=== PATIENT | female | born 1960 ===

== ENCOUNTER 2018-10-13 07:39 | Outpatient (CLI) | payer MEDICARE, MEDICAID | END 2018-10-13 07:40 | disposition home or self-care (01) | LOC: C.VASC 07:39 | DX: I87.2 Venous insufficiency (chronic) (peripheral) (principal) ==

== ENCOUNTER → 2018-10-16 | Day surgery (SDC) | payer MEDICARE, MEDICAID ==
[2018-10-13 09:07] VITALS: BMI 28.1
[~2018-10-16] MED LIST: Bupivacaine 0.25% 20 ML INJ IJ ONE; HYDROmorphone 0.5 mg/0.5 ml ISec IVP PRN; Lidocaine Hydrochloride 10 ML INJ ONE; Midazolam 2 MG/2 ML VIAL ONE; Oxycodone/Acetaminophen 5/325 mg Tab PO PRN; Propofol 10 mg/ml Inj (20 ML) ONE; ceFAZolin 1 gm in NS 1 GM/100 ML BAG IVPB ONE
[2018-10-16 15:57] VITALS: RESP 16; TEMP 97.9
[2018-10-16 16:15] VITALS: BP 123/76; PULSE 73; O2SAT 97
--- NOTE | 2018-10-19 07:11 | OP ---
PROCEDURE DATE: 10/16/2018 PREOPERATIVE DIAGNOSIS: Hemangioma and soft tissue mass of the left thigh and leg. POSTOPERATIVE DIAGNOSIS: Hemangioma and soft tissue mass of the left thigh and leg. PROCEDURE PERFORMED: Wide and deep excision of 5 cm hemangioma and soft tissue mass of the left thigh and of the left leg. SURGEON: Willis Nevarez MD ANESTHESIA: Local sedation. BLOOD LOSS: 30 mL. POSTOPERATIVE CONDITION: Stable. INDICATIONS FOR SURGERY: A 58-year-old female with varicose veins and painful vascular tumors (hemangioma) of the leg, associated with indurated masses, and she will undergo wide and deep excision of both of these. DESCRIPTION OF PROCEDURE: The patient was taken to the operating room. IV sedation was administered. She was placed in the left lateral decubitus position with the left leg flexed, and left thigh and leg were prepped and draped. Attention was first turned to the left thigh, where local anesthesia was infiltrated of 1% lidocaine and 0.25% Marcaine, and a generous elliptical incision was made surrounding the mass. It was dissected into the fascial layer and completely removed. Bleeding was controlled using a Bovie. A larger blood vessel was repaired with Prolene. Full-thickness tissue flaps were raised. Counter incisions were made and advancement flap closures were performed using multiple layers of Monocryl, subcuticular Monocryl and glue. The above was repeated on the similar mass of the left leg. The patient tolerated the procedure well, was returned to the recovery room in stable condition. Willis Nevarez MD
== END | disposition home or self-care (01) ==
LOC: C.SDS 10:48
PROVIDERS: ATTEND Surgery
DX: I83.10 Varicose veins of unspecified lower extremity with inflammation (principal); D18.01 Hemangioma of skin and subcutaneous tissue
CPT/HCPCS: 14020; 82948; 88307; J0690; J2250; J2704; J3010

== ENCOUNTER 2018-11-20 09:57 | Emergency (ER) | payer MEDICARE, MEDICAID ==
[2018-11-20 10:17] VITALS: BMI 28.9
[2018-11-20 10:21] VITALS: O2SAT 98
[2018-11-20 11:49] LABS: BASO # 0.1 K/uL (0.0-0.2); BASO % 0.8 % (0.0-2.0); EOS # 0.2 K/uL (0.0-0.7); EOS % 2.2 % (0.0-4.0); HEMOGLOBIN 11.2 g/dL (11.0-16.0); LYMPH % 24.2 % (20.0-40.0); MEAN CELL VOLUME 87.4 fL (81.0-99.0); MEAN CORPUSCULAR HEMOGLOBIN 28.4 pg (27.0-31.0); MEAN CORPUSCULAR HGB CONC 32.5 g/dL (33.0-37.0); MEAN PLATELET VOLUME 7.7 fL (7.2-11.7); MONO # 0.6 K/uL (0.0-0.8); MONO % 7.2 % (0.0-10.0); NEUT # 5.3 K/uL (1.8-7.0); NEUT % 65.6 % (50.0-75.0); RBC 3.95 Mil/uL (3.80-5.20); RED CELL DISTRIBUTION WIDTH 14.5 % (11.5-14.5); WHITE BLOOD COUNT 8.1 K/uL (4.8-10.8)
[2018-11-20 11:58] LABS: SQUAMOUS EPITHIAL 3 /hpf (0-5); URINE BILIRUBIN NEGATIVE (NEGATIVE); URINE BLOOD NEGATIVE (NEGATIVE); URINE CLARITY Clear (Clear); URINE COLOR Yellow (YELLOW); URINE GLUCOSE (UA) 3+ mg/dL (Normal); URINE LEUKOCYTE ESTERASE NEG Leu/uL (Negative); URINE PROTEIN NEGATIVE (NEGATIVE); URINE UROBILINOGEN NORMAL mg/dL (0.2-1.0)
[2018-11-20 12:05] LABS: ALB/GLOB RATIO 1.4 (1.0-2.1); ALBUMIN 4.2 g/dL (3.5-5.0); ALT/SGPT 33 U/L (9-52); AST/SGOT 26 U/L (14-36); BLOOD UREA NITROGEN 13 mg/dL (7-17); CALCIUM 9.6 mg/dl (8.6-10.4); GFR NON-AFRICAN AMERICAN > 60
--- NOTE | 2018-11-20 12:07 | C.PDOC ---
History Of Present Illness 58 y/o female w/PMhx of NIDDM, comes for evaluation of persistent left leg pain and wound. Patient is s/p left leg hemangioma removal and varicose vein procedure on 10/16/[address] Bermudez. Pt reports , developed spot-surgical open wound in the area with oozing, redness and increasing pain now and is concerned for possible infection worsening over the past 4-5 days, (+) low grade fever. Otherwise pt denies high fever, lethargy, CP, SOB, chest pain, cough, nausea, vomiting, denies weakness, sensory or vascular deficits to left leg. Ambulatory, not in any apparent distress. Time Seen by Provider: 11/20/18 10:15 Chief Complaint (Nursing): Lower Extremity Problem/Injury History Per: Patient History/Exam Limitations: no limitations Onset/Duration Of Symptoms: Days (5) Current Symptoms Are (Timing): Still Present Severity: Moderate Past Medical History Reviewed: Historical Data, Nursing Documentation, Vital Signs Vital Signs: Last Vital Signs Temp 98.6 F 11/20/18 10:14 Pulse 72 11/20/18 10:14 Resp 17 11/20/18 10:14 BP 124/74 11/20/18 10:14 Pulse Ox 98 11/20/18 10:14 - Medical History PMH: Anxiety, Depression, Diabetes, HTN, Hypercholesterolemia, Rheumatoid Arthritis Denies: Chronic Kidney Disease Surgical History: Coronary Stent (x2), Endoscopy - [facility] Procedures CERVICAL BIOPSY NEC (09/14/99) COLONOSCOPY (10/05/14) D & C NEC (04/29/03) INJECT/INFUSE ELECTROLYT (11/17/12) INJECT/INFUSE NEC (11/17/12) LEVATOR MUSC SUSPENSION (03/01/05) OTH VAGINAL HYSTERECTOMY (03/01/05) Family History: States: Unknown Family Hx - Social History Hx Tobacco Use: No Hx Alcohol Use: No (denied) Hx Substance Use: No - Immunization History Hx Tetanus Toxoid Vaccination: No Hx Influenza Vaccination: Yes (05/2018) Hx Pneumococcal Vaccination: Yes (05/2018) Review Of Systems Except As Marked, All Systems Reviewed And Found Negative. Constitutional: Positive for: Fever, Chills Eyes: Negative for: Vision Change Cardiovascular: Negative for: Chest Pain Respiratory: Negative for: Shortness of Breath Gastrointestinal: Negative for: Nausea, Vomiting, Diarrhea Musculoskeletal: Positive for: Leg Pain Skin: Positive for: Lesions (open wound to left leg, +drainage) Neurological: Negative for: Weakness, Numbness, Dizziness Physical Exam - Physical Exam Appears: Well, Non-toxic, No Acute Distress Skin: Warm, Dry Head: Normacephalic Eye(s): bilateral: PERRL Oral Mucosa: Moist Neck: Supple Cardiovascular: Rhythm Regular, No Murmur Respiratory: No Accessory Muscle Use, No Rales, No Rhonchi, No Wheezing Gastrointestinal/Abdominal: Soft, No Tenderness, No Distention, No Guarding Extremity: Normal ROM (x 4), No Calf Tenderness, Capillary Refill (less than 2sec to LLE), No Deformity, Other (Open wound, 4x5 cm to the left inner thigh, covered by yellow eschar; Inner aspect of left knee w/ tender, erythematous ma ss over the incision line) Extremity: Bilateral: Atraumatic Pulses: Left Dorsalis Pedis: Normal, Right Dorsalis Pedis: Normal Neurological/Psych: Oriented x3, Normal Speech, Normal Motor, Normal Sensation, Normal Reflexes ED Course And Treatment - Laboratory Results Result Diagrams: 11/20/18 11:39 11/20/18 11:39 Lab Results: Urine Color Yellow (YELLOW) 11/20/18 11:39 Urine Clarity Clear (Clear) 11/20/18 11:39 Urine pH 5.0 (5.0-8.0) 11/20/18 11:39 Ur Specific [place] 1.025 (1.003-1.030) 11/20/18 11:39 Urine Protein Negative mg/dL (NEGATIVE) 11/20/18 11:39 Urine Glucose (UA) 3+ mg/dL (Normal) H 11/20/18 11:39 Urine Ketones Negative mg/dL (NEGATIVE) 11/20/18 11:39 Urine Blood Negative (NEGATIVE) 11/20/18 11:39 Urine Nitrate Negative (NEGATIVE) 11/20/18 11:39 Urine Bilirubin Negative (NEGATIVE) 11/20/18 11:39 Urine Urobilinogen Normal mg/dL (0.2-1.0) 11/20/18 11:39 Ur Leukocyte Esterase Neg Ariel/uL (Negative) 11/20/18 11:39 Urine WBC (Auto) 1 /hpf (0-5) 11/20/18 11:39 Urine RBC (Auto) 1 /hpf (0-3) 11/20/18 11:39 Ur Squamous Epith Cells 3 /hpf (0-5) 11/20/18 11:39 Lab Interpretation: No Acute Changes O2 Sat by Pulse Oximetry: 98 (RA) Pulse Ox Interpretation: Normal Progress Note: Pt remained tsable during the ED evaluation. Blood work review and appears without acute abnoramlities, no acute leukocytosis. Doppler US LLE (-) DVT. Pt received abx empirically, BCx- penidng. 11:[address] Bermudez and discharge with outpt f/u recommend at this time and scheduled on 11/23/18 at 12PM. results review with pt, understand, stable for discharge now. Disposition Counseled Patient/Family Regarding: Studies Performed, Diagnosis, Need For Followup, Rx Given - Disposition Referrals: Willis Bermudez MD [Staff Provider] - Disposition: HOME/ ROUTINE Disposition Time: 14:18 Condition: STABLE Additional Instructions: FOLLOW UP WITH DR. BERMUDEZ AT 12PM ON 11/23/18 FOR FURTHER EVALUATION RETURN TO ED IF ANY WORSENING OR NEW CHANGES Prescriptions: Sulfamethoxazole/Trimethoprim [Bactrim DS 800 mg-160 mg] 1 tab PO BID #14 tab Instructions: Cellulitis (Skin Infection), Adult (DC) Forms: [employer] (Amharic) Print Language: PORTUGUESE - Clinical Impression Clinical Impression: Postoperative cellulitis of surgical wound - PA / ASSOCIATE PRODUCER / Resident Statement MD/DO has reviewed & agrees with the documentation as recorded. - Scribe Statement The provider has reviewed the documentation as recorded by the [place] All medical record entries made by the Bee[place]i were at my direction and personally dictated by me. I have reviewed the chart and agree that the record accurately reflects my personal performance of the history, physical exam, medical decision making, and the department course for this patient. I have also personally directed, reviewed, and agree with the discharge instructions and disposition.
[2018-11-20] MEDS ORDERED: Piperacillin/Tazobact 3.375 GM in Sodium Chloride 100 ML IVPB STA (12:19)
[2018-11-20] MEDS ORDERED: Piperacillin/Tazobact 3.375 gm 100 ML IVPB ONE (12:29)
[2018-11-20] MEDS ORDERED: Vancomycin 1 GM 1 GM/250 ML BAG IVPB ONE (12:48)
[2018-11-20 14:38] VITALS: BP 131/78; PULSE 78; RESP 16; TEMP 98.1
--- NOTE | 2018-11-23 14:04 | VASCLAB ---
Date of service: 11/20/2018 PROCEDURE: Left Lower Extremity Venous Duplex Exam. HISTORY: Left calf pian, left knee mass PRIORS: None. TECHNIQUE: Left common femoral, femoral, popliteal and posterior tibial, peroneal and great saphenous veins were evaluated. Flow was assessed with color Doppler, compressibility, assessment of phasic flow and augmentation response. Report prepared by LINDSEY Matt, RVT FINDINGS: LEFT: 1. Common Femoral Vein: 1.1. Compressibility - Fully compressible: Thrombus - None : Flow - Phasic: Augmentation -Normal: Reflux - None. 2. Femoral Vein: 2.1. Compressibility - Fully compressible: Thrombus - None: Flow - Phasic: Augmentation -Normal: Reflux - None. 3. Popliteal Vein: 3.1. Compressibility - Fully compressible: Thrombus - None: Flow - Phasic: Augmentation -Normal: Reflux - None. 4. Posterior Tibial Vein: 4.1. Compressibility - Fully compressible: Thrombus - None: Flow - Phasic: Augmentation -Normal: Reflux - None. 5. Peroneal Vein: 5.1. Compressibility - Fully compressible: Thrombus - None: Flow - Phasic: Augmentation -Normal: Reflux - None. 6. Great Saphenous Vein: 6.1. Compressibility - Fully compressible: Thrombus - None: Flow - Phasic: Augmentation - Normal: Reflux - None. OTHER FINDINGS: IMPRESSION: No evidence of deep or superficial vein thrombosis of the left lower extremity with excellent venous flow. Normal valve function noted of the left side. Normal venous flow noted in the right common femoral vein.
== END 2018-11-20 14:36 | disposition home or self-care (01) ==
LOC: C.ER 09:57
DX: L03.116 Cellulitis of left lower limb (principal); I10 Essential (primary) hypertension; E11.9 Type 2 diabetes mellitus without complications; E78.00 Pure hypercholesterolemia, unspecified; Z95.5 Presence of coronary angioplasty implant and graft; Z87.891 Personal history of nicotine dependence
CPT/HCPCS: 80053; 81001; 85025; 87040; 87086; 93971; 96365; 96367; 99284; J2543; J7050

== ENCOUNTER 2018-11-24 11:51 | Inpatient (IN) | payer MEDICARE, MEDICAID ==
[2018-11-24 11:52] VITALS: BMI 28.1
--- NOTE | 2018-11-24 13:32 | C.PDOC ---
History Of Present Illness Patient presents to ED for OR repair of left leg wounds by Dr. Nevarez. Patient is s/p varicose vein surgery by him on 10/16/18. She states since then the area has become infected, and she has been on antibiotics already. Patient is NPO since last night. PMhx : DM, HTN, hyperlipidemia, RA Time Seen by Provider: 11/24/18 13:21 Chief Complaint (Nursing): Lower Extremity Problem/Injury History Per: Patient History/Exam Limitations: no limitations Onset/Duration Of Symptoms: Days Current Symptoms Are (Timing): Still Present Severity: Moderate Past Medical History Reviewed: Historical Data, Nursing Documentation, Vital Signs Vital Signs: Last Vital Signs Temp 98.7 F 11/24/18 12:46 Pulse 68 11/24/18 12:46 Resp 18 11/24/18 12:46 BP 127/73 11/24/18 12:46 Pulse Ox 97 11/24/18 12:46 - Medical History PMH: Anxiety, Arthritis, Depression, Diabetes, HTN, Hypercholesterolemia, Rheumatoid Arthritis Surgical History: Coronary Stent (x2), Endoscopy - [facility] Procedures CERVICAL BIOPSY NEC (09/14/99) COLONOSCOPY (10/05/14) D & C NEC (04/29/03) INJECT/INFUSE ELECTROLYT (11/17/12) INJECT/INFUSE NEC (11/17/12) LEVATOR MUSC SUSPENSION (03/01/05) OTH VAGINAL HYSTERECTOMY (03/01/05) Family History: States: No Known Family Hx - Social History Hx Tobacco Use: No Hx Alcohol Use: No Hx Substance Use: No - Immunization History Hx Tetanus Toxoid Vaccination: No Hx Influenza Vaccination: Yes Hx Pneumococcal Vaccination: Yes (05/2018) Review Of Systems Constitutional: Negative for: Fever, Chills Cardiovascular: Negative for: Chest Pain, Palpitations Respiratory: Negative for: Cough, Shortness of Breath Skin: Positive for: Other (left leg infected wounds ) Physical Exam - Physical Exam Appears: Well, Non-toxic, No Acute Distress Skin: Other (see leg exam) Eye(s): bilateral: Normal Inspection Oral Mucosa: Moist Cardiovascular: Rhythm Regular Respiratory: Normal Breath Sounds, No Rales, No Rhonchi, No Wheezing Gastrointestinal/Abdominal: Normal Exam, Bowel Sounds, Soft, No Tenderness Extremity: Normal ROM, Other (left medial upper leg/thigh, approx 3cm infected appearing wound proximally with purulent discharge, and approx 2cm infected appearing wound distally (close to knee)) Extremity: Bilateral: Normal Color And Temperature, Normal ROM Pulses: Left Dorsalis Pedis: Normal, Right Dorsalis Pedis: Normal ED Course And Treatment - Laboratory Results Result Diagrams: 11/28/18 07:26 11/28/18 07:26 O2 Sat by Pulse Oximetry: 97 (RA) Pulse Ox Interpretation: Normal Progress Note: Blood work ordered and reviewed. Patient admitted to [facility] under Dr. Nevarez's service. Disposition - Disposition Disposition: HOSPITALIZED Disposition Time: 14:07 Condition: STABLE - Clinical Impression Clinical Impression: Wound, open, leg, Postoperative infection Decision To Admit - Pt Status Changed To: Hospital Disposition Of: [facility]- Endo,OR,Cath,IR - . Bed Request Type: Same Day Surgery Admitting Physician: Willis Nevarez Patient Diagnosis: Wound, open, leg, Postoperative infection
[2018-11-24] MEDS ORDERED: ceFAZolin 1 gm in NS 0 GM/0 ML BAG IVPB ONE (13:39)
[2018-11-24 13:57] LABS: EOS # 0.1 K/uL (0.0-0.7); HEMOGLOBIN 11.7 g/dL (11.0-16.0); LYMPH # 1.8 K/uL (1.0-4.3); MEAN CELL VOLUME 87.2 fL (81.0-99.0); MEAN PLATELET VOLUME 7.5 fL (7.2-11.7); MONO # 0.5 K/uL (0.0-0.8)
[2018-11-24 14:02] LABS: BASO # 0.1 K/uL (0.0-0.2); BASO % 0.7 % (0.0-2.0); EOS % 1.3 % (0.0-4.0); LYMPH % 24.5 % (20.0-40.0); MEAN CORPUSCULAR HEMOGLOBIN 29.1 pg (27.0-31.0); MEAN CORPUSCULAR HGB CONC 33.3 g/dL (33.0-37.0); MONO % 7.1 % (0.0-10.0); NEUT % 66.4 % (50.0-75.0); RBC 4.01 Mil/uL (3.80-5.20); RED CELL DISTRIBUTION WIDTH 14.6 % (11.5-14.5); WHITE BLOOD COUNT 7.5 K/uL (4.8-10.8)
[2018-11-24 14:06] LABS: INR 1.1; PROTHROMBIN TIME 11.8 SECONDS (9.7-12.2)
[2018-11-24 14:15] LABS: ALB/GLOB RATIO 1.5 (1.0-2.1); ALBUMIN 4.5 g/dL (3.5-5.0); ALT/SGPT 35 U/L (9-52); AST/SGOT 34 U/L (14-36); BLOOD UREA NITROGEN 13 mg/dL (7-17); CALCIUM 9.5 mg/dl (8.6-10.4); GFR NON-AFRICAN AMERICAN > 60
[2018-11-24] MEDS ORDERED: Midazolam 2 MG/2 ML VIAL ONE (14:37)
[2018-11-24] MEDS ORDERED: Propofol 10 mg/ml Inj (20 ML) ONE (14:37)
[2018-11-24] MEDS ORDERED: ceFAZolin 1 gm in NS 1 GM/100 ML BAG IVPB ONE (14:39)
[2018-11-24] MEDS ORDERED: Lidocaine Hydrochloride 10 ML INJ ONE (14:56)
[2018-11-24] MEDS ORDERED: Bupivacaine HCl 0.25% PF (10 ml) Inj ONE (14:57)
[2018-11-24] MEDS ORDERED: HYDROmorphone 0.5 mg/0.5 ml ISec IVP PRN (15:16)
[2018-11-24] MEDS ORDERED: Lactated Ringer's 1,000 ML IV SCH (16:00)
--- NOTE | 2018-11-24 16:16 | RAD ---
Date of service: 11/24/2018 PROCEDURE: CHEST RADIOGRAPH, 1 VIEW HISTORY: preop COMPARISON: None available. FINDINGS: LUNGS: Clear. PLEURA: No pneumothorax or pleural fluid seen. CARDIOVASCULAR: No aortic atherosclerotic calcification present. Normal. OSSEOUS STRUCTURES: No significant abnormalities. VISUALIZED UPPER ABDOMEN: Normal. OTHER FINDINGS: None. IMPRESSION: No active disease.
[2018-11-24] MEDS ORDERED: Fluticasone Nasal 50 mcg/Spray NAS PRN (16:48)
[2018-11-24] MEDS: Oxycodone/Acetaminophen 5/325 mg Tab PO PRN (18:29)
[2018-11-24] MEDS: Vancomycin 1 gm/NS 200 ml 1 GM/200 ML BAG IVPB SCH (18:33)
--- NOTE | 2018-11-24 18:51 | CP.PCM.HP ---
Past Patient History - Infectious Disease Hx of Infectious Diseases: None - Past Medical History & Family History Past Medical History?: Yes - Past Social History Smoking Status: Never Smoked - CARDIAC Hx Hypercholesterolemia: Yes Hx Hypertension: Yes - PULMONARY Hx Respiratory Disorders: No - NEUROLOGICAL Hx Neurological Disorder: No - HEENT Hx HEENT Problems: Yes Hx Glaucoma: Yes - RENAL Hx Chronic Kidney Disease: No - ENDOCRINE/METABOLIC Hx Endocrine Disorders: Yes Hx Diabetes Mellitus Type 2: Yes - HEMATOLOGICAL/ONCOLOGICAL Hx Blood Disorders: No - INTEGUMENTARY Hx Dermatological Problems: Yes (SEE COMMENT) Other/Comment: Varicose Veins, left thigh - MUSCULOSKELETAL/RHEUMATOLOGICAL Hx Arthritis: Yes Hx Rheumatoid Arthritis: Yes - GASTROINTESTINAL Hx Gastrointestinal Disorders: No - GENITOURINARY/GYNECOLOGICAL Hx Genitourinary Disorders: No - PSYCHIATRIC Hx Anxiety: Yes Hx Depression: Yes Hx Substance Use: No - SURGICAL HISTORY Hx Coronary Stent: Yes (x2) - ANESTHESIA Hx Anesthesia: Yes Hx Anesthesia Reactions: No Hx Malignant Hyperthermia: No Meds Allergies/Adverse Reactions: Allergies Allergy/AdvReac Type Severity Reaction Status Date / Time No Known Allergies Allergy Verified 11/20/18 10:13 Physical Exam - Constitutional Appears: Well - Head Exam Head Exam: ATRAUMATIC, NORMAL INSPECTION, NORMOCEPHALIC - Eye Exam Eye Exam: EOMI, Normal appearance, PERRL Pupil Exam: NORMAL ACCOMODATION, PERRL - ENT Exam ENT Exam: Mucous Membranes Moist, Normal Exam - Neck Exam Neck exam: Positive for: Normal Inspection - Respiratory Exam Respiratory Exam: Decreased Breath Sounds - Cardiovascular Exam Cardiovascular Exam: REGULAR RHYTHM, +S1, +S2 - GI/Abdominal Exam GI & Abdominal Exam: Diminished Bowel Sounds, Soft - Rectal Exam Rectal Exam: Deferred Results - Vital Signs Recent Vital Signs: Last Vital Signs Temp 97.9 F 11/24/18 17:30 Pulse 66 11/24/18 17:30 Resp 20 11/24/18 17:30 BP 117/71 11/24/18 17:30 Pulse Ox 96 11/24/18 17:30 - Labs Result Diagrams: 11/24/18 13:49 11/24/18 13:49 Labs: Laboratory Results - last 24 hr 11/24/18 11/24/18 11/24/18 13:49 13:49 13:49 WBC 7.5 RBC 4.01 Hgb 11.7 Hct 34.9 MCV 87.2 MCH 29.1 MCHC 33.3 RDW 14.6 H Plt Count 413 H MPV 7.5 Neut % (Auto) 66.4 Lymph % (Auto) 24.5 [place] % (Auto) 7.1 Eos % (Auto) 1.3 Baso % (Auto) 0.7 Neut # (Auto) 5.0 Lymph # (Auto) 1.8 [place] # (Auto) 0.5 Eos # (Auto) 0.1 Baso # (Auto) 0.1 PT 11.8 INR 1.1 APTT 32 Sodium 135 Potassium 3.9 Chloride 99 Carbon Dioxide 28 Anion Gap 12 BUN 13 Creatinine 0.8 Est GFR ( Amer) > 60 Est GFR (Non-Af Amer) > 60 POC Glucose (mg/dL) Random Glucose 142 H D Calcium 9.5 Total Bilirubin 0.7 AST 34 ALT 35 Alkaline Phosphatase 83 Total Protein 7.4 Albumin 4.5 Globulin 2.9 Albumin/Globulin Ratio 1.5 Blood Type Antibody Screen 11/24/18 11/24/18 13:49 17:01 WBC RBC Hgb Hct MCV MCH MCHC RDW Plt Count MPV Neut % (Auto) Lymph % (Auto) [place] % (Auto) Eos % (Auto) Baso % (Auto) Neut # (Auto) Lymph # (Auto) [place] # (Auto) Eos # (Auto) Baso # (Auto) PT INR APTT Sodium Potassium Chloride Carbon Dioxide Anion Gap BUN Creatinine Est GFR ( Amer) Est GFR (Non-Af Amer) POC Glucose (mg/dL) 85 Random Glucose Calcium Total Bilirubin AST ALT Alkaline Phosphatase Total Protein Albumin Globulin Albumin/Globulin Ratio Blood Type B POSITIVE Antibody Screen Negative
--- NOTE | 2018-11-24 19:32 | CP.PCM.CON ---
History of Present Illness - History of Present Illness History of Present Illness: INFECTIOUS DISEASE CONSULT; HPI. 58-year-old female with history of diabetes mellitus, CAD S/P X 2 stents HTN, rheumatoid arthritis, depression, anxiety was admitted on 11/24/18 because off infected left leg wound. Patient states she had the requesting surgery on 10/16/18 and since then the area has been leaking and infected. Patient failed outpatient antibiotic therapy as given by surgery and is brought in for repair of the left leg wound. Patient postoperative today 11/24/18. INFECTIOUS DISEASE CONSULT REQUESTED BY DR BERMUDEZ FOR INFECTED LEFT LEG POST SURGICAL INCISION S/P VARICOSE VEIN SURGERY. PATIENT DENIES ANY FEVER OR CHILLS. C/O PAIN AT THE SITE OF THE WOUND WHICH IS PRESENTLY POSTOP WITH AN DANIEL BANDAGE ON. NOTED PATIENT IN THE OR RECEIVED ANCEF/AND IS STARTED ON iv VANCOMYCIN 1 G EVERY 12 HOURLY PMH: Anxiety, Arthritis, Depression, Diabetes, HTN, Hypercholesterolemia, Rheumatoid Arthritis Surgical History: Coronary Stent (x2), Endoscopy - [facility] Procedures CERVICAL BIOPSY NEC (09/14/99) COLONOSCOPY (10/05/14) D & C NEC (04/29/03) INJECT/INFUSE ELECTROLYT (11/17/12) INJECT/INFUSE NEC (11/17/12) LEVATOR MUSC SUSPENSION (03/01/05) OTH VAGINAL HYSTERECTOMY (03/01/05) Family History: States: No Known Family Hx - Social History Hx Tobacco Use: No Hx Alcohol Use: No Hx Substance Use: No - Immunization History Hx Tetanus Toxoid Vaccination: No Hx Influenza Vaccination: Yes Hx Pneumococcal Vaccination: Yes (05/2018) Review of Systems - Constitutional Constitutional: absent: Chills, Fever - EENT Eyes: absent: Change in Vision Nose/Mouth/Throat: Dry Mouth. absent: Mouth Lesions - Cardiovascular Cardiovascular: absent: Chest Pain, Dyspnea - Respiratory Respiratory: absent: Cough - Gastrointestinal Gastrointestinal: absent: Abdominal Pain, Diarrhea, Nausea, Vomiting - Genitourinary Genitourinary: absent: Dysuria, Hematuria, Freq UTI - Musculoskeletal Musculoskeletal: Radiating Pain into Limb (LEFT LEG) - Neurological Neurological: absent: Dizziness, Numbness, Headaches - Psychiatric Psychiatric: Anxiety - Hematologic/Lymphatic Hematologic: As Per HPI. absent: Easy Bleeding, Easy Bruising, Lymphadenopathy Past Patient History - Infectious Disease Hx of Infectious Diseases: None - Past Medical History & Family History Past Medical History?: Yes - Past Social History Smoking Status: Never Smoked - CARDIAC Hx Hypercholesterolemia: Yes Hx Hypertension: Yes - PULMONARY Hx Respiratory Disorders: No - NEUROLOGICAL Hx Neurological Disorder: No - HEENT Hx HEENT Problems: Yes Hx Glaucoma: Yes - RENAL Hx Chronic Kidney Disease: No - ENDOCRINE/METABOLIC Hx Endocrine Disorders: Yes Hx Diabetes Mellitus Type 2: Yes - HEMATOLOGICAL/ONCOLOGICAL Hx Blood Disorders: No - INTEGUMENTARY Hx Dermatological Problems: Yes (SEE COMMENT) Other/Comment: Varicose Veins, left thigh - MUSCULOSKELETAL/RHEUMATOLOGICAL Hx Arthritis: Yes Hx Rheumatoid Arthritis: Yes - GASTROINTESTINAL Hx Gastrointestinal Disorders: No - GENITOURINARY/GYNECOLOGICAL Hx Genitourinary Disorders: No - PSYCHIATRIC Hx Anxiety: Yes Hx Depression: Yes Hx Substance Use: No - SURGICAL HISTORY Hx Coronary Stent: Yes (x2) - ANESTHESIA Hx Anesthesia: Yes Hx Anesthesia Reactions: No Hx Malignant Hyperthermia: No Meds Allergies/Adverse Reactions: Allergies Allergy/AdvReac Type Severity Reaction Status Date / Time No Known Allergies Allergy Verified 11/20/18 10:13 - Medications Medications: Current Medications Docusate Sodium (Colace) 100 mg PO BID [facility] Last Admin: 11/24/18 17:25 Dose: 100 mg Fluticasone Propionate (Flonase) 50 spr ELIAN DAILY PRN PRN Reason: Shortness of Breath Folic Acid (Folic Acid) 1 mg PO DAILY [facility] Gabapentin (Neurontin) 300 mg PO HS [facility] Lactated Ringer's (Lactated Ringer's) 1,000 mls @ 60 mls/hr IV .[id number] [facility] Last Admin: 11/24/18 17:29 Dose: 60 mls/hr Vancomycin/Sodium Chloride (Vancomycin 1 Gm/Ns 200 Ml) 1 gm in 200 mls @ 133 mls/hr IVPB Q12H [facility]; Protocol Stop: 11/29/18 16:31 Last Admin: 11/24/18 18:33 Dose: 133 mls/hr Insulin Human Regular (Novolin R) 0 unit SC [facility]; Protocol Losartan Potassium (Cozaar) 25 mg PO DAILY [facility] Metformin HCl (Glucophage) 1,000 mg PO BID [facility] Last Admin: 11/24/18 17:25 Dose: 1,000 mg Metoprolol Succinate (Toprol Xl) 50 mg PO DAILY [facility] Oxycodone/Acetaminophen (Percocet 5/325 Mg Tab) 2 tab PO Q4H PRN PRN Reason: pain Stop: 11/27/18 15:48 Last Admin: 11/24/18 18:29 Dose: 2 tab Pantoprazole Sodium (Protonix Inj) 40 mg IVP DAILY [facility] Physical Exam - Constitutional Appears: No Acute Distress - Head Exam Head Exam: NORMAL INSPECTION - Eye Exam Eye Exam: EOMI, PERRL - ENT Exam ENT Exam: Normal Oropharynx - Neck Exam Neck exam: Positive for: Normal Inspection - Respiratory Exam Respiratory Exam: Clear to Auscultation Bilateral, NORMAL BREATHING PATTERN - Cardiovascular Exam Cardiovascular Exam: REGULAR RHYTHM, +S1, +S2 - GI/Abdominal Exam GI & Abdominal Exam: Normal Bowel Sounds, Soft. absent: Tenderness - Extremities Exam Extremities exam: Positive for: normal capillary refill (LT KNEE/AND CALF IN DRESSING AND Daniel BANDAGE), pedal pulses present. Negative for: calf tenderness, pedal edema - Neurological Exam Neurological exam: Alert, CN II-XII Intact, Oriented x3 - Psychiatric Exam Psychiatric exam: Normal Mood - Skin Skin Exam: Normal Color, Warm Results - Vital Signs Recent Vital Signs: Last Vital Signs Temp 97.9 F 11/24/18 17:30 Pulse 66 11/24/18 17:30 Resp 20 11/24/18 17:30 BP 117/71 11/24/18 17:30 Pulse Ox 96 11/24/18 17:30 - Labs Result Diagrams: 11/24/18 13:49 11/24/18 13:49 Labs: Laboratory Results - last 24 hr 11/24/18 11/24/18 11/24/18 13:49 13:49 13:49 WBC 7.5 RBC 4.01 Hgb 11.7 Hct 34.9 MCV 87.2 MCH 29.1 MCHC 33.3 RDW 14.6 H Plt Count 413 H MPV 7.5 Neut % (Auto) 66.4 Lymph % (Auto) 24.5 [place] % (Auto) 7.1 Eos % (Auto) 1.3 Baso % (Auto) 0.7 Neut # (Auto) 5.0 Lymph # (Auto) 1.8 [place] # (Auto) 0.5 Eos # (Auto) 0.1 Baso # (Auto) 0.1 PT 11.8 INR 1.1 APTT 32 Sodium 135 Potassium 3.9 Chloride 99 Carbon Dioxide 28 Anion Gap 12 BUN 13 Creatinine 0.8 Est GFR ( Amer) > 60 Est GFR (Non-Af Amer) > 60 POC Glucose (mg/dL) Random Glucose 142 H D Calcium 9.5 Total Bilirubin 0.7 AST 34 ALT 35 Alkaline Phosphatase 83 Total Protein 7.4 Albumin 4.5 Globulin 2.9 Albumin/Globulin Ratio 1.5 Blood Type Antibody Screen 11/24/18 11/24/18 13:49 17:01 WBC RBC Hgb Hct MCV MCH MCHC RDW Plt Count MPV Neut % (Auto) Lymph % (Auto) [place] % (Auto) Eos % (Auto) Baso % (Auto) Neut # (Auto) Lymph # (Auto) Love # (Auto) Eos # (Auto) Baso # (Auto) PT INR APTT Sodium Potassium Chloride Carbon Dioxide Anion Gap BUN Creatinine Est GFR ( Amer) Est GFR (Non-Af Amer) POC Glucose (mg/dL) 85 Random Glucose Calcium Total Bilirubin AST ALT Alkaline Phosphatase Total Protein Albumin Globulin Albumin/Globulin Ratio Blood Type B POSITIVE Antibody Screen Negative - Imaging and Cardiology Chest x-ray Status: Report reviewed by me (NO ACTIVE DISEASE) Assessment & Plan (1) Postoperative cellulitis of surgical wound Assessment and Plan: PANCULTURE. ESR CRP. MRSA SCREEN. CONTINUE iv VANCOMYCIN 1 G EVERY 12 HOURLY 11/24/18 ADD IV ROCEPHIN 1 G EVERY 12 HOURLY 11/24/18. F/U CULTURES TO ADJUST ANTIBIOTICS. lOCAL WOUND CARE PER SURGERY pATIENT FOLLOW THE PATIENT WHILE IN THE HOSPITAL. Status: Acute (2) Diabetes mellitus Assessment and Plan: CHECK HEMOGLOBIN A1C ADEQUATE CONTROL BLOOD SUGARS FOR GOOD WOUND HEALING. Status: Acute (3) Rheumatoid arthritis Status: Acute
[2018-11-24] MEDS: (Novolin R) Insulin Human Regular 100 units/ml vial SC SCH (21:53)
[2018-11-24] MEDS ORDERED: (Novolin R) Insulin Human Regular 100 units/ml vial SC SCH (22:00)
[2018-11-25] MEDS: Sodium Chloride 0.9% 1,000 ML IV SCH ×2 (00:45→17:10)
[2018-11-25] MEDS: Vancomycin 1 gm/NS 200 ml 1 GM/200 ML BAG IVPB SCH ×2 (03:35→16:35)
--- NOTE | 2018-11-25 04:42 | OP ---
PROCEDURE DATE: 11/24/2018 PREOPERATIVE DIAGNOSIS: Infected mass of the right knee and leg. POSTOPERATIVE DIAGNOSIS: Infected mass of the right knee and leg. PROCEDURES PERFORMED: Wide deep excision of infected mass of the right knee with drainage of underlying abscess and partial tissue flap closure, and debridement and excision of infected mass of the right leg. SURGEON: Willis Nevarez MD ANESTHESIA: General. BLOOD LOSS: 30 mL. POSTOP CONDITION: Stable. 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 Three weeks after her initial postoperative visit, she was seen and found to have significant infections of both wounds with dehiscence of the knee and development of inflammatory mass along with an infection in the leg wound. She was admitted to the hospital for debridement and drainage under local anesthesia. PROCEDURE: The patient was taken to the operating room, general anesthesia was administered. Both leg and knee wounds were prepped and draped. They were excised and debrided using a scalpel and Bovie. Bleeding was controlled using the Bovie and larger blood vessels were repaired. Underlying tissue flaps were raised and partial tissue flap closures were performed. Central portion of the wounds were packed open. The patient tolerated procedure well and returned to recovery in stable condition. Willis Nevarez MD
--- NOTE | 2018-11-25 07:05 | CP.PCM.PN ---
Subjective - Date & Time of Evaluation Date of Evaluation: 11/25/18 Time of Evaluation: 07:04 - Subjective Subjective: Medicine Progress Note - Dr Judy Bowers's service Patient seen and examined at bedside. Per nursing no acute events overnight. Patient is NPO for the OR today with Dr Nevarez for left lower extremity wound. Patient is s/p varicose vein surgery by him on 10/16/18. She denies any fevers or chills. Allergies: NKDA Medications: Will need to confirm medications with pharmacy Medical history: Anxiety, Depression, Diabetes, HTN, Hypercholesterolemia, Rheumatoid Arthritis Surgical History: Vaginal hysterectomy, 2 cardiac stents Social History: Denies alcohol, tobacco, drug use Objective - Vital Signs/Intake and Output Vital Signs (last 24 hours): Temp Pulse Resp BP Pulse Ox 98.2 F 70 20 121/71 95 11/25/18 00:00 11/25/18 00:00 11/25/18 00:00 11/25/18 00:00 11/25/18 00:00 Intake and Output: 11/25/18 11/25/18 06:59 18:59 Intake Total 1810 Output Total 400 Balance 1410 - Medications Medications: Current Medications Docusate Sodium (Colace) 100 mg PO BID [facility] Last Admin: 11/24/18 17:25 Dose: 100 mg Fluticasone Propionate (Flonase) 50 spr ELIAN DAILY PRN PRN Reason: Shortness of Breath Folic Acid (Folic Acid) 1 mg PO DAILY [facility] Gabapentin (Neurontin) 300 mg PO HS [facility] Last Admin: 11/24/18 21:53 Dose: 300 mg Vancomycin/Sodium Chloride (Vancomycin 1 Gm/Ns 200 Ml) 1 gm in 200 mls @ 133 mls/hr IVPB Q12H [facility]; Protocol Stop: 11/29/18 16:31 Last Admin: 11/25/18 03:35 Dose: 133 mls/hr Ceftriaxone Sodium 1 gm/ (Sodium Chloride) 100 mls @ 100 mls/hr IVPB Q12H [facility]; Protocol Last Admin: 11/25/18 00:45 Dose: 100 mls/hr Sodium Chloride (Sodium Chloride 0.9%) 1,000 mls @ 60 mls/hr IV .[id number] [facility] Last Admin: 11/25/18 00:45 Dose: 60 mls/hr Insulin Human Regular (Novolin R) 0 unit SC ACHS [facility]; Protocol Last Admin: 11/24/18 21:53 Dose: Not Given Losartan Potassium (Cozaar) 25 mg PO DAILY [facility] Metformin HCl (Glucophage) 1,000 mg PO BID [facility] Last Admin: 11/24/18 17:25 Dose: 1,000 mg Metoprolol Succinate (Toprol Xl) 50 mg PO DAILY [facility] Oxycodone/Acetaminophen (Percocet 5/325 Mg Tab) 2 tab PO Q4H PRN PRN Reason: pain Stop: 11/27/18 15:48 Last Admin: 11/24/18 18:29 Dose: 2 tab Pantoprazole Sodium (Protonix Inj) 40 mg IVP DAILY [facility] - Labs Labs: 11/24/18 13:49 11/24/18 13:49 PT 11.8 SECONDS (9.7-12.2) 11/24/18 13:49 INR 1.1 11/24/18 13:49 APTT 32 SECONDS (21-34) 11/24/18 13:49 - Constitutional Appears: Non-toxic, No Acute Distress - Head Exam Head Exam: ATRAUMATIC, NORMAL INSPECTION, NORMOCEPHALIC - Eye Exam Eye Exam: EOMI, Normal appearance - ENT Exam ENT Exam: Mucous Membranes Moist - Neck Exam Neck Exam: Full ROM - Respiratory Exam Respiratory Exam: NORMAL BREATHING PATTERN - Cardiovascular Exam Cardiovascular Exam: REGULAR RHYTHM, +S1, +S2 - GI/Abdominal Exam GI & Abdominal Exam: Soft. absent: Guarding, Rigid, Tenderness - Extremities Exam Additional comments: Left lower extremity rl bandage clean/dry/intact - Neurological Exam Neurological Exam: Alert, Awake, Oriented x3 - Psychiatric Exam Psychiatric exam: Flat Affect Assessment and Plan - Assessment and Plan (Free Text) Assessment: Left lower extremity wound/cellulitis -Stable, afebrile -Diet : NPO for OR today -F/U wound cultures -Blood cultures negative x 5 days -Antibiotics : Vancomycin 1 gm Q12H and Rocephin 1 gm Q12H -ID on consult, help appreciated CAD s/p stent -On Plavix 75mg PO daily (held) Hypertension -Cozaar 25mg PO daily -Metoprolol succinate 50mg PO daily Diabetes Mellitus -Insulin sliding scale and accuchecks ACHS -Metformin 1000mg PO BID -Gabapentin 300mg PO HS -Hemoglobin A1C 10.8 GI/DVT ppx: Protonix 40mg IVP daily Plan discussed with Dr Judy Hernandez DO PGY-2
[2018-11-25 07:27] LABS: BASO % 0.6 % (0.0-2.0); EOS # 0.1 K/uL (0.0-0.7); EOS % 1.7 % (0.0-4.0); HEMOGLOBIN 11.6 g/dL (11.0-16.0); LYMPH # 1.9 K/uL (1.0-4.3); LYMPH % 29.6 % (20.0-40.0); MEAN CELL VOLUME 87.9 fL (81.0-99.0); MEAN CORPUSCULAR HEMOGLOBIN 28.8 pg (27.0-31.0); MEAN CORPUSCULAR HGB CONC 32.8 g/dL (33.0-37.0); MEAN PLATELET VOLUME 7.4 fL (7.2-11.7); MONO # 0.5 K/uL (0.0-0.8); MONO % 8.1 % (0.0-10.0); NEUT # 3.8 K/uL (1.8-7.0); RBC 4.02 Mil/uL (3.80-5.20); RED CELL DISTRIBUTION WIDTH 14.7 % (11.5-14.5); WHITE BLOOD COUNT 6.4 K/uL (4.8-10.8)
[2018-11-25] MEDS: (Novolin R) Insulin Human Regular 100 units/ml vial SC SCH ×4 (07:31→21:53)
[2018-11-25 07:42] LABS: BLOOD UREA NITROGEN 15 mg/dL (7-17); GFR NON-AFRICAN AMERICAN > 60
[2018-11-25] MEDS: Metoprolol Succinate 50 mg XL Tab PO SCH (09:34)
[2018-11-25] MEDS ORDERED: Metoprolol Succinate 50 mg XL Tab PO SCH (10:00)
--- NOTE | 2018-11-25 11:42 | CP.PCM.PN ---
Subjective - Date & Time of Evaluation Date of Evaluation: 11/25/18 Time of Evaluation: 11:42 - Subjective Subjective: AFEBRILE, FOR OR AGAIN TODAY FOR DEBRIDEMENT. LABS ; WOUND CULTURES : GM +VE COCCI Objective - Vital Signs/Intake and Output Vital Signs (last 24 hours): Temp Pulse Resp BP Pulse Ox 97.7 F 62 20 125/73 98 11/25/18 07:34 11/25/18 07:34 11/25/18 07:34 11/25/18 07:34 11/25/18 07:34 Intake and Output: 11/25/18 11/25/18 06:59 18:59 Intake Total 1810 Output Total 400 Balance 1410 - Medications Medications: Current Medications Docusate Sodium (Colace) 100 mg PO BID [facility] Last Admin: 11/25/18 09:28 Dose: Not Given Fluticasone Propionate (Flonase) 50 spr ELIAN DAILY PRN PRN Reason: Shortness of Breath Folic Acid (Folic Acid) 1 mg PO DAILY [facility] Last Admin: 11/25/18 09:29 Dose: Not Given Gabapentin (Neurontin) 300 mg PO HS [facility] Last Admin: 11/24/18 21:53 Dose: 300 mg Vancomycin/Sodium Chloride (Vancomycin 1 Gm/Ns 200 Ml) 1 gm in 200 mls @ 133 mls/hr IVPB Q12H [facility]; Protocol Stop: 11/29/18 16:31 Last Admin: 11/25/18 03:35 Dose: 133 mls/hr Ceftriaxone Sodium 1 gm/ (Sodium Chloride) 100 mls @ 100 mls/hr IVPB Q12H [facility]; Protocol Last Admin: 11/25/18 00:45 Dose: 100 mls/hr Sodium Chloride (Sodium Chloride 0.9%) 1,000 mls @ 60 mls/hr IV .[id number] [facility] Last Admin: 11/25/18 00:45 Dose: 60 mls/hr Insulin Human Regular (Novolin R) 0 unit SC ACHS [facility]; Protocol Last Admin: 11/25/18 11:25 Dose: Not Given Losartan Potassium (Cozaar) 25 mg PO DAILY [facility] Last Admin: 11/25/18 09:34 Dose: 25 mg Metformin HCl (Glucophage) 1,000 mg PO BID [facility] Last Admin: 11/25/18 09:29 Dose: Not Given Metoprolol Succinate (Toprol Xl) 50 mg PO DAILY [facility] Last Admin: 11/25/18 09:34 Dose: 50 mg Oxycodone/Acetaminophen (Percocet 5/325 Mg Tab) 2 tab PO Q4H PRN PRN Reason: pain Stop: 11/27/18 15:48 Last Admin: 11/24/18 18:29 Dose: 2 tab Pantoprazole Sodium (Protonix Inj) 40 mg IVP DAILY [facility] Last Admin: 11/25/18 09:34 Dose: 40 mg - Labs Labs: 11/25/18 07:19 11/25/18 07:19 PT 11.8 SECONDS (9.7-12.2) 11/24/18 13:49 INR 1.1 11/24/18 13:49 APTT 32 SECONDS (21-34) 11/24/18 13:49 - Constitutional Appears: No Acute Distress - Head Exam Head Exam: NORMAL INSPECTION - Eye Exam Eye Exam: EOMI, PERRL - ENT Exam ENT Exam: Normal Oropharynx - Neck Exam Neck Exam: Normal Inspection - Respiratory Exam Respiratory Exam: Clear to Ausculation Bilateral, NORMAL BREATHING PATTERN - Cardiovascular Exam Cardiovascular Exam: REGULAR RHYTHM, +S1, +S2 - GI/Abdominal Exam GI & Abdominal Exam: Soft, Normal Bowel Sounds. absent: Tenderness - Extremities Exam Extremities Exam: Pedal Edema (LT KNEE AND LEG IN DRESSING). absent: Calf Tenderness - Neurological Exam Neurological Exam: Alert, Awake, CN II-XII Intact, Oriented x3 - Psychiatric Exam Psychiatric exam: Normal Mood - Skin Skin Exam: Normal Color, Warm Assessment and Plan (1) Postoperative cellulitis of surgical wound Assessment & Plan: CONTINUE iv VANCOMYCIN 1 G EVERY 12 HOURLY 11/24/18 ON IV ROCEPHIN 1 G EVERY 12 HOURLY 11/24/18. F/U CULTURES TO ADJUST ANTIBIOTICS. lOCAL WOUND CARE PER SURGERY WILL FOLLOW THE PATIENT WHILE IN THE HOSPITAL. Status: Acute (2) Diabetes mellitus Assessment & Plan: HGB A1C 10.8 % BS HIGH. ADEQUATE CONTROL OF BS PER PMD. Status: Acute (3) Rheumatoid arthritis Status: Acute
[2018-11-25] MEDS: Oxycodone/Acetaminophen 5/325 mg Tab PO PRN (13:30)
[2018-11-25] MEDS ORDERED: HYDROmorphone 0.5 mg/0.5 ml ISec IVP PRN ×2 (14:22→17:14)
[2018-11-25] MEDS ORDERED: Propofol 10 mg/ml Inj (20 ML) ONE (16:15)
[2018-11-25] MEDS ORDERED: Midazolam 2 MG/2 ML VIAL ONE (16:15)
[2018-11-25] MEDS ORDERED: Vancomycin 1 gm/D5W 200 ml 1 GM/200 ML BAG IVPB ONE (16:26)
[2018-11-25] MEDS ORDERED: Bupivacaine 0.25% 20 ML INJ IJ ONE (16:34)
[2018-11-25] MEDS ORDERED: Lidocaine Hydrochloride 5 ML INJ ONE (16:34)
--- NOTE | 2018-11-25 19:30 | CP.PCM.PN ---
Subjective - Date & Time of Evaluation Date of Evaluation: 11/25/18 - Subjective Subjective: patient seen and examined at bedside no nausea no vomiting no diarrhea no fever no SOB Objective - Vital Signs/Intake and Output Vital Signs (last 24 hours): Temp Pulse Resp BP Pulse Ox 98 F 68 14 123/59 L 99 11/25/18 17:40 11/25/18 17:40 11/25/18 17:40 11/25/18 17:40 11/25/18 17:40 Intake and Output: 11/25/18 11/26/18 18:59 06:59 Intake Total 1125 Balance 1125 - Medications Medications: Current Medications Docusate Sodium (Colace) 100 mg PO BID [facility] Last Admin: 11/25/18 17:50 Dose: Not Given Fluticasone Propionate (Flonase) 50 spr ELIAN DAILY PRN PRN Reason: Shortness of Breath Folic Acid (Folic Acid) 1 mg PO DAILY [facility] Last Admin: 11/25/18 09:29 Dose: Not Given Gabapentin (Neurontin) 300 mg PO HS [facility] Last Admin: 11/24/18 21:53 Dose: 300 mg Hydromorphone HCl (Dilaudid) 0.5 mg IVP Q10M PRN PRN Reason: Pain, moderate (4-7) Vancomycin/Sodium Chloride (Vancomycin 1 Gm/Ns 200 Ml) 1 gm in 200 mls @ 133 mls/hr IVPB Q12H [facility]; Protocol Stop: 11/29/18 16:31 Last Admin: 11/25/18 16:35 Dose: Not Given Ceftriaxone Sodium 1 gm/ (Sodium Chloride) 100 mls @ 100 mls/hr IVPB Q12H [facility]; Protocol Last Admin: 11/25/18 11:54 Dose: 100 mls/hr Sodium Chloride (Sodium Chloride 0.9%) 1,000 mls @ 60 mls/hr IV .[id number] [facility] Last Admin: 11/25/18 17:10 Dose: Not Given Insulin Human Regular (Novolin R) 0 unit [place] [facility]; Protocol Last Admin: 11/25/18 16:35 Dose: Not Given Losartan Potassium (Cozaar) 25 mg PO DAILY [facility] Last Admin: 11/25/18 09:34 Dose: 25 mg Metformin HCl (Glucophage) 1,000 mg PO BID [facility] Last Admin: 11/25/18 17:50 Dose: Not Given Metoprolol Succinate (Toprol Xl) 50 mg PO DAILY [facility] Last Admin: 11/25/18 09:34 Dose: 50 mg Oxycodone/Acetaminophen (Percocet 5/325 Mg Tab) 2 tab PO Q4H PRN PRN Reason: pain Stop: 11/27/18 15:48 Last Admin: 11/25/18 13:30 Dose: 2 tab Pantoprazole Sodium (Protonix Inj) 40 mg IVP DAILY [facility] Last Admin: 11/25/18 09:34 Dose: 40 mg - Labs Labs: 11/25/18 07:19 11/25/18 07:19 PT 11.8 SECONDS (9.7-12.2) 11/24/18 13:49 INR 1.1 11/24/18 13:49 APTT 32 SECONDS (21-34) 11/24/18 13:49 - Constitutional Appears: Well - Head Exam Head Exam: ATRAUMATIC, NORMAL INSPECTION, NORMOCEPHALIC - Eye Exam Eye Exam: EOMI, Normal appearance, PERRL Pupil Exam: NORMAL ACCOMODATION, PERRL - ENT Exam ENT Exam: Mucous Membranes Moist, Normal Exam - Neck Exam Neck Exam: Full ROM, Normal Inspection. absent: Lymphadenopathy - Respiratory Exam Respiratory Exam: Decreased Breath Sounds - Cardiovascular Exam Cardiovascular Exam: REGULAR RHYTHM, +S1, +S2 - GI/Abdominal Exam GI & Abdominal Exam: Soft, Diminished Bowel Sounds - Rectal Exam Rectal Exam: Deferred Assessment and Plan - Assessment and Plan (Free Text) Plan: patient examined at bedside vitals reviewed labs reviewed medications reviewed colace cozaar 25m po daily dilaudid 0.5mg IVP Q10 PRN folic acid 1mg PO DAILY glucophage 1,000mg po bid neurontin 300mg po hs novolin R percocet5/325mg tab 2 tab PO Q4H PRN protonix inj 40 mg IVP DAILY rocephin 1gm sodium chloride 0.9 1,000ml iw 60 mls/hr toprol xl 50 mg po dialy vancomycin 1gm/NS 200 ml 1gm in 200ml IVPB Q12H
[2018-11-26] MEDS: Vancomycin 1 gm/NS 200 ml 1 GM/200 ML BAG IVPB SCH ×2 (03:45→17:05)
--- NOTE | 2018-11-26 03:58 | OP ---
PROCEDURE DATE: 11/25/2018 PREOPERATIVE DIAGNOSIS: Necrotizing soft tissue infection of the left thigh and leg area. POSTOPERATIVE DIAGNOSIS: Necrotizing soft tissue infection of the left thigh and leg area. PROCEDURE PERFORMED: Debridement, re-drainage of abscess of thigh and knee with pulse irrigation and partial flap closure. SURGEON: Willis Nevarez MD ANESTHESIA: General. BLOOD LOSS: 40 mL. POSTOPERATIVE CONDITION: Stable. 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 She was brought to the OR yesterday where wounds were debrided and cultured. The cultures today revealed a heavy growth of gram-positive cocci, possibly suspicious for MRSA; taken back to the OR today for further debridement, change of packing with pulse irrigation under anesthesia. DESCRIPTION OF PROCEDURE: The patient was taken to the operating room, IV sedation was administered. Local anesthesia was infiltrated in both wounds and it was then aggressively debrided of all necrotic tissue. Any remaining collections were drained and cultured. Bleeding was controlled using Bovie. Larger blood vessels were repaired. The wounds were then pulse irrigated, partial tissue flap closures were performed. The central portion of wound was packed open with saline gauze. The patient tolerated the procedure well and returned to recovery room in stable condition. Willis Nevarez MD
[2018-11-26 07:37] LABS: BASO % 0.6 % (0.0-2.0); EOS # 0.1 K/uL (0.0-0.7); EOS % 1.3 % (0.0-4.0); HEMOGLOBIN 12.5 g/dL (11.0-16.0); LYMPH % 26.1 % (20.0-40.0); MEAN CELL VOLUME 88.1 fL (81.0-99.0); MEAN CORPUSCULAR HEMOGLOBIN 29.3 pg (27.0-31.0); MEAN CORPUSCULAR HGB CONC 33.3 g/dL (33.0-37.0); MEAN PLATELET VOLUME 7.9 fL (7.2-11.7); MONO # 0.6 K/uL (0.0-0.8); MONO % 7.9 % (0.0-10.0); NEUT # 4.8 K/uL (1.8-7.0); NEUT % 64.1 % (50.0-75.0); RBC 4.26 Mil/uL (3.80-5.20); RED CELL DISTRIBUTION WIDTH 14.8 % (11.5-14.5); WHITE BLOOD COUNT 7.5 K/uL (4.8-10.8)
--- NOTE | 2018-11-26 07:37 | CP.PCM.PN ---
Subjective - Date & Time of Evaluation Date of Evaluation: 11/26/18 Time of Evaluation: 07:36 - Subjective Subjective: Medicine Progress Note - Dr Judy Bowers's service Patient seen and examined at bedside. Per nursing no acute events overnight. Patient is doing well, offers no complaints at this time. She is s/p incision and drainage of left thigh abscess. Objective - Vital Signs/Intake and Output Vital Signs (last 24 hours): Temp Pulse Resp BP Pulse Ox 98.3 F 64 20 135/75 94 L 11/26/18 00:00 11/26/18 00:00 11/26/18 00:00 11/26/18 00:00 11/26/18 00:00 Intake and Output: 11/26/18 11/26/18 06:59 18:59 Intake Total 900 590 Balance 900 590 - Medications Medications: Current Medications Docusate Sodium (Colace) 100 mg PO BID [facility] Last Admin: 11/25/18 20:21 Dose: 100 mg Fluticasone Propionate (Flonase) 50 spr ELIAN DAILY PRN PRN Reason: Shortness of Breath Folic Acid (Folic Acid) 1 mg PO DAILY [facility] Last Admin: 11/25/18 09:29 Dose: Not Given Gabapentin (Neurontin) 300 mg PO HS [facility] Last Admin: 11/25/18 21:02 Dose: 300 mg Hydromorphone HCl (Dilaudid) 0.5 mg IVP Q10M PRN PRN Reason: Pain, moderate (4-7) Vancomycin/Sodium Chloride (Vancomycin 1 Gm/Ns 200 Ml) 1 gm in 200 mls @ 133 mls/hr IVPB Q12H [facility]; Protocol Stop: 11/29/18 16:31 Last Admin: 11/26/18 03:45 Dose: 133 mls/hr Ceftriaxone Sodium 1 gm/ (Sodium Chloride) 100 mls @ 100 mls/hr IVPB Q12H [facility]; Protocol Last Admin: 11/25/18 23:08 Dose: 100 mls/hr Sodium Chloride (Sodium Chloride 0.9%) 1,000 mls @ 60 mls/hr IV .[id number] [facility] Last Admin: 11/25/18 17:10 Dose: Not Given Insulin Human Regular (Novolin R) 0 unit SC ACHS [facility]; Protocol Last Admin: 11/25/18 21:53 Dose: Not Given Losartan Potassium (Cozaar) 25 mg PO DAILY [facility] Last Admin: 11/25/18 09:34 Dose: 25 mg Metformin HCl (Glucophage) 1,000 mg PO BID [facility] Last Admin: 11/25/18 20:21 Dose: 1,000 mg Metoprolol Succinate (Toprol Xl) 50 mg PO DAILY [facility] Last Admin: 11/25/18 09:34 Dose: 50 mg Oxycodone/Acetaminophen (Percocet 5/325 Mg Tab) 2 tab PO Q4H PRN PRN Reason: pain Stop: 11/27/18 15:48 Last Admin: 11/25/18 13:30 Dose: 2 tab Pantoprazole Sodium (Protonix Inj) 40 mg IVP DAILY [facility] Last Admin: 11/25/18 09:34 Dose: 40 mg - Labs Labs: 11/25/18 07:19 11/25/18 07:19 PT 11.8 SECONDS (9.7-12.2) 11/24/18 13:49 INR 1.1 11/24/18 13:49 APTT 32 SECONDS (21-34) 11/24/18 13:49 - Additional Findings Additional findings: - Constitutional Appears: Non-toxic, No Acute Distress - Head Exam Head Exam: ATRAUMATIC, NORMAL INSPECTION, NORMOCEPHALIC - Eye Exam Eye Exam: EOMI, Normal appearance - ENT Exam ENT Exam: Mucous Membranes Moist - Neck Exam Neck Exam: Full ROM - Respiratory Exam Respiratory Exam: NORMAL BREATHING PATTERN - Cardiovascular Exam Cardiovascular Exam: REGULAR RHYTHM, +S1, +S2 - GI/Abdominal Exam GI & Abdominal Exam: Soft. absent: Guarding, Rigid, Tenderness - Extremities Exam Additional comments: Left lower extremity rl bandage clean/dry/intact - Neurological Exam Neurological Exam: Alert, Awake, Oriented x3 Assessment and Plan - Assessment and Plan (Free Text) Assessment: Left lower extremity wound/cellulitis -Stable, afebrile -S/P I+D of left thigh abscess POD#1 -Diet : NPO for OR tomorrow -Wound cultures growing gram positive cocci -Blood cultures negative x 5 days -Antibiotics : Vancomycin 1 gm Q12H and Rocephin 1 gm Q12H -ID on consult, help appreciated CAD s/p stent -On Plavix 75mg PO daily (held) Hypertension -Cozaar 25mg PO daily -Metoprolol succinate 50mg PO daily Diabetes Mellitus -Medium dose Insulin sliding scale and accuchecks ACHS -Metformin 1000mg PO BID -Gabapentin 300mg PO HS -Hemoglobin A1C 10.8 GI/DVT ppx: Protonix 40mg IVP daily Plan discussed with Dr Judy Hernandez DO PGY-2
[2018-11-26] MEDS: (Novolin R) Insulin Human Regular 100 units/ml vial SC SCH ×4 (07:44→21:42)
[2018-11-26 07:47] LABS: ALB/GLOB RATIO 1.3 (1.0-2.1); ALBUMIN 4.2 g/dL (3.5-5.0); ALT/SGPT 32 U/L (9-52); AST/SGOT 30 U/L (14-36); BLOOD UREA NITROGEN 12 mg/dL (7-17); CALCIUM 9.4 mg/dl (8.6-10.4); GFR NON-AFRICAN AMERICAN > 60
[2018-11-26] MEDS: Metoprolol Succinate 50 mg XL Tab PO SCH (09:28)
[2018-11-26] MEDS: Sodium Chloride 0.9% 1,000 ML IV SCH (09:36)
[2018-11-26] MEDS ORDERED: Propofol 10 mg/ml Inj (20 ML) ONE (10:46)
[2018-11-26] MEDS ORDERED: Midazolam 2 MG/2 ML VIAL ONE (10:46)
[2018-11-26] MEDS ORDERED: Lidocaine Hydrochloride 0 ML INJ ONE (10:56)
[2018-11-26] MEDS ORDERED: Bupivacaine 0.25% 20 ML INJ IJ ONE (10:57)
[2018-11-26] MEDS ORDERED: HYDROmorphone 0.5 mg/0.5 ml ISec IVP PRN (11:29)
--- NOTE | 2018-11-26 11:29 | CP.PCM.PN ---
Subjective - Date & Time of Evaluation Date of Evaluation: 11/26/18 Time of Evaluation: 11:29 - Subjective Subjective: AFEBRILE S/P OR AGAIN TODAY ( 3RD TIME ) C/O PAINLT KNEE POSTOPERATIVELY. LABS ; REVIEWED WOUND CULTURE +VE HG GPC Objective - Vital Signs/Intake and Output Vital Signs (last 24 hours): Temp Pulse Resp BP Pulse Ox 97.9 F 71 20 145/76 97 11/26/18 08:04 11/26/18 08:04 11/26/18 08:04 11/26/18 08:04 11/26/18 08:04 Intake and Output: 11/26/18 11/26/18 06:59 18:59 Intake Total 900 590 Balance 900 590 - Medications Medications: Current Medications Docusate Sodium (Colace) 100 mg PO BID [facility] Last Admin: 11/26/18 09:28 Dose: Not Given Fluticasone Propionate (Flonase) 50 spr ELIAN DAILY PRN PRN Reason: Shortness of Breath Folic Acid (Folic Acid) 1 mg PO DAILY [facility] Last Admin: 11/26/18 09:28 Dose: Not Given Gabapentin (Neurontin) 300 mg PO HS [facility] Last Admin: 11/25/18 21:02 Dose: 300 mg Hydromorphone HCl (Dilaudid) 0.5 mg IVP Q10M PRN PRN Reason: Pain, moderate (4-7) Vancomycin/Sodium Chloride (Vancomycin 1 Gm/Ns 200 Ml) 1 gm in 200 mls @ 133 mls/hr IVPB Q12H [facility]; Protocol Stop: 11/29/18 16:31 Last Admin: 11/26/18 03:45 Dose: 133 mls/hr Ceftriaxone Sodium 1 gm/ (Sodium Chloride) 100 mls @ 100 mls/hr IVPB Q12H [facility]; Protocol Last Admin: 11/25/18 23:08 Dose: 100 mls/hr Sodium Chloride (Sodium Chloride 0.9%) 1,000 mls @ 60 mls/hr IV .[id number] [facility] Last Admin: 11/26/18 09:36 Dose: 60 mls/hr Insulin Human Regular (Novolin R) 0 unit SC ACHS [facility]; Protocol Last Admin: 11/26/18 07:44 Dose: Not Given Losartan Potassium (Cozaar) 25 mg PO DAILY [facility] Last Admin: 11/26/18 09:28 Dose: 25 mg Metformin HCl (Glucophage) 1,000 mg PO BID [facility] Last Admin: 11/26/18 09:28 Dose: Not Given Metoprolol Succinate (Toprol Xl) 50 mg PO DAILY [facility] Last Admin: 11/26/18 09:28 Dose: 50 mg Oxycodone/Acetaminophen (Percocet 5/325 Mg Tab) 2 tab PO Q4H PRN PRN Reason: pain Stop: 11/27/18 15:48 Last Admin: 11/25/18 13:30 Dose: 2 tab Pantoprazole Sodium (Protonix Inj) 40 mg IVP DAILY [facility] Last Admin: 11/26/18 09:29 Dose: 40 mg - Labs Labs: 11/26/18 07:18 11/26/18 07:18 PT 11.8 SECONDS (9.7-12.2) 11/24/18 13:49 INR 1.1 11/24/18 13:49 APTT 32 SECONDS (21-34) 11/24/18 13:49 - Constitutional Appears: No Acute Distress - Head Exam Head Exam: NORMAL INSPECTION - Eye Exam Eye Exam: EOMI, PERRL - ENT Exam ENT Exam: Normal Oropharynx - Neck Exam Neck Exam: Normal Inspection - Respiratory Exam Respiratory Exam: Clear to Ausculation Bilateral - Cardiovascular Exam Cardiovascular Exam: REGULAR RHYTHM, +S1, +S2 - GI/Abdominal Exam GI & Abdominal Exam: Normal Bowel Sounds - Extremities Exam Extremities Exam: Pedal Edema, Tenderness (LT KNEE POST OPT SITE + DRESSING CDI. ). absent: Calf Tenderness - Neurological Exam Neurological Exam: Awake, CN II-XII Intact, Oriented x3 - Skin Skin Exam: Normal Color, Warm Assessment and Plan (1) Postoperative cellulitis of surgical wound Assessment & Plan: CONTINUE iv VANCOMYCIN 1 G EVERY 12 HOURLY 11/24/18 ON IV ROCEPHIN 1 G EVERY 12 HOURLY 11/24/18. F/U CULTURES TO ADJUST ANTIBIOTICS GP COCCI -P lOCAL WOUND CARE PER SURGERY WILL FOLLOW THE PATIENT WHILE IN THE HOSPITAL. Status: Acute (2) Diabetes mellitus Status: Acute (3) Rheumatoid arthritis Status: Acute
--- NOTE | 2018-11-26 12:34 | CP.PCM.PN ---
Subjective - Date & Time of Evaluation Date of Evaluation: 11/26/18 Time of Evaluation: 12:25 - Subjective Subjective: patient examined denies SOB, nausea, dizziness, fever, diarrhea, vomiting family bedside Objective - Vital Signs/Intake and Output Vital Signs (last 24 hours): Temp Pulse Resp BP Pulse Ox 97.6 F 67 13 124/65 99 11/26/18 11:25 11/26/18 11:25 11/26/18 11:25 11/26/18 11:25 11/26/18 11:25 Intake and Output: 11/26/18 11/26/18 06:59 18:59 Intake Total 900 590 Balance 900 590 - Medications Medications: Current Medications Docusate Sodium (Colace) 100 mg PO BID [facility] Last Admin: 11/26/18 09:28 Dose: Not Given Fluticasone Propionate (Flonase) 50 spr ELIAN DAILY PRN PRN Reason: Shortness of Breath Folic Acid (Folic Acid) 1 mg PO DAILY [facility] Last Admin: 11/26/18 09:28 Dose: Not Given Gabapentin (Neurontin) 300 mg PO HS [facility] Last Admin: 11/25/18 21:02 Dose: 300 mg Hydromorphone HCl (Dilaudid) 0.5 mg IVP Q10M PRN PRN Reason: Pain, moderate (4-7) Hydromorphone HCl (Dilaudid) 0.5 mg IVP Q5M PRN PRN Reason: Pain, severe (8-10) Stop: 11/26/18 13:29 Vancomycin/Sodium Chloride (Vancomycin 1 Gm/Ns 200 Ml) 1 gm in 200 mls @ 133 mls/hr IVPB Q12H [facility]; Protocol Stop: 11/29/18 16:31 Last Admin: 11/26/18 03:45 Dose: 133 mls/hr Ceftriaxone Sodium 1 gm/ (Sodium Chloride) 100 mls @ 100 mls/hr IVPB Q12H [facility]; Protocol Last Admin: 11/25/18 23:08 Dose: 100 mls/hr Sodium Chloride (Sodium Chloride 0.9%) 1,000 mls @ 60 mls/hr IV .[id number] [facility] Last Admin: 11/26/18 09:36 Dose: 60 mls/hr Insulin Human Regular (Novolin R) [address] [facility]; Protocol Last Admin: 11/26/18 12:22 Dose: Not Given Losartan Potassium (Cozaar) 25 mg PO DAILY [facility] Last Admin: 11/26/18 09:28 Dose: 25 mg Metformin HCl (Glucophage) 1,000 mg PO BID [facility] Last Admin: 11/26/18 09:28 Dose: Not Given Metoprolol Succinate (Toprol Xl) 50 mg PO DAILY [facility] Last Admin: 11/26/18 09:28 Dose: 50 mg Ondansetron HCl (Zofran Inj) 4 mg IVP ONCE PRN PRN Reason: Nausea/Vomiting Stop: 11/26/18 13:30 Oxycodone/Acetaminophen (Percocet 5/325 Mg Tab) 2 tab PO Q4H PRN PRN Reason: pain Stop: 11/27/18 15:48 Last Admin: 11/25/18 13:30 Dose: 2 tab Pantoprazole Sodium (Protonix Inj) 40 mg IVP DAILY [facility] Last Admin: 11/26/18 09:29 Dose: 40 mg - Labs Labs: 11/26/18 07:18 11/26/18 07:18 PT 11.8 SECONDS (9.7-12.2) 11/24/18 13:49 INR 1.1 11/24/18 13:49 APTT 32 SECONDS (21-34) 11/24/18 13:49 - Constitutional Appears: Well - Head Exam Head Exam: ATRAUMATIC, NORMAL INSPECTION, NORMOCEPHALIC - Eye Exam Eye Exam: EOMI, Normal appearance, PERRL Pupil Exam: NORMAL ACCOMODATION, PERRL - ENT Exam ENT Exam: Mucous Membranes Moist, Normal Exam - Neck Exam Neck Exam: Full ROM, Normal Inspection. absent: Lymphadenopathy - Respiratory Exam Respiratory Exam: Decreased Breath Sounds - Cardiovascular Exam Cardiovascular Exam: REGULAR RHYTHM, +S1, +S2 - GI/Abdominal Exam GI & Abdominal Exam: Soft, Diminished Bowel Sounds - Rectal Exam Rectal Exam: Deferred Assessment and Plan - Assessment and Plan (Free Text) Plan: medications reviewed colace cozaar dilaudid flonase folic acid glucophage neurontin novolin r percocet 5/325mg tab protonix inj rocephin sodium chloride 0.9% 1,000ml toprox xl vancomycin 1gm//ns 200ml zofran inj labs and vitals reviewed Vanco level status post IND status post OR again status post n.p.o. for OR today Family bedside Patient answered Follow-up with the ID CBC CMP seen
--- NOTE | 2018-11-26 14:51 | OP ---
PROCEDURE DATE: 11/26/2018 PREOPERATIVE DIAGNOSIS: Open wound infection of left lower extremity, left leg and thigh. POSTOPERATIVE DIAGNOSIS: Open wound infection of left lower extremity, left leg and thigh. PROCEDURE PERFORMED: 1. Wide deep excision of infected wound of the left thigh with tissue flap closure. 2. Debridement, partial closure of wound to the left leg. SURGEON: Willis Nevarez MD ANESTHESIA: General. BLOOD LOSS: 15 mL. POSTOPERATIVE CONDITION: Stable. INDICATIONS FOR SURGERY: This is a 58-year-old female who presented with a soft tissue infection on the left leg status post excision of vascular tumors. It is suspicious for MRSA. We did drainage and debridement of both. The cultures revealed heavy growth of staph. We are awaiting the sensitivities at this point. She has been taken to the operating room for staged procedures for daily pulse irrigation. It is debrided and now packing changes under local anesthesia with sedation. She is taken back today for possible closure of both wounds. DESCRIPTION OF PROCEDURE: The patient was taken to the operating room, general anesthesia was administered. The left thigh and leg wounds were prepped and draped. The left thigh wound was debrided via an elliptical incision and essentially the wound was excised. Bleeding was controlled using the Bovie and underlying vessels were repaired and an advancement flap closure was performed with multiple layers of Vicryl. The wound was partially left open at the periphery. The left leg wound was pulse irrigated, debrided, partially closed and repacked. The patient tolerated the procedure well and returned to recovery room in stable condition. Willis Nevarez MD
[2018-11-26] MEDS: Oxycodone/Acetaminophen 5/325 mg Tab PO PRN (23:00)
[2018-11-27] MEDS: Sodium Chloride 0.9% 1,000 ML IV SCH ×2 (02:30→19:10)
[2018-11-27] MEDS: Vancomycin 1 gm/NS 200 ml 1 GM/200 ML BAG IVPB SCH ×3 (04:32→18:56)
[2018-11-27 07:07] LABS: BASO % 0.7 % (0.0-2.0); EOS # 0.2 K/uL (0.0-0.7); EOS % 2.5 % (0.0-4.0); HEMOGLOBIN 11.2 g/dL (11.0-16.0); LYMPH # 2.1 K/uL (1.0-4.3); MEAN CELL VOLUME 88.4 fL (81.0-99.0); MEAN CORPUSCULAR HEMOGLOBIN 29.1 pg (27.0-31.0); MEAN PLATELET VOLUME 7.7 fL (7.2-11.7); MONO # 0.6 K/uL (0.0-0.8); MONO % 8.2 % (0.0-10.0); NEUT # 3.9 K/uL (1.8-7.0); NEUT % 57.6 % (50.0-75.0); RBC 3.85 Mil/uL (3.80-5.20); RED CELL DISTRIBUTION WIDTH 14.8 % (11.5-14.5); WHITE BLOOD COUNT 6.8 K/uL (4.8-10.8)
[2018-11-27 07:55] LABS: ALB/GLOB RATIO 1.3 (1.0-2.1); ALBUMIN 3.6 g/dL (3.5-5.0); ALT/SGPT 31 U/L (9-52); AST/SGOT 28 U/L (14-36); BLOOD UREA NITROGEN 17 mg/dL (7-17); GFR NON-AFRICAN AMERICAN > 60
[2018-11-27] MEDS: (Novolin R) Insulin Human Regular 100 units/ml vial SC SCH ×4 (08:09→21:37)
[2018-11-27] MEDS: Metoprolol Succinate 50 mg XL Tab PO SCH (10:34)
--- NOTE | 2018-11-27 12:13 | CP.PCM.PN ---
Subjective - Date & Time of Evaluation Date of Evaluation: 11/27/18 Time of Evaluation: 12:13 - Subjective Subjective: Patient is doing well, offers no complaints at this time. She is s/p incision and drainage of left thigh abscess. LABS; WOUND CULTURES 11/24/18 +VE ENTEROCOCCUS FAECALIS S- PCN/ AMPICILLIN. REPEAT WOUND CULTURES 11/26/18 , -VE X 24 HOURS. BLOOD CULTURES 11/25/18 -VE GROWTH TO DATE. VANCO TROUGH 10.1 -OK RENAL FUNCTION N. 80 Objective - Vital Signs/Intake and Output Vital Signs (last 24 hours): Temp Pulse Resp BP Pulse Ox 97.9 F 65 20 144/77 96 11/27/18 07:44 11/27/18 07:44 11/27/18 07:44 11/27/18 07:44 11/27/18 07:44 Intake and Output: 11/27/18 11/27/18 06:59 18:59 Intake Total 1760 Balance 1760 - Medications Medications: Current Medications Docusate Sodium (Colace) 100 mg PO BID [facility] Last Admin: 11/27/18 10:27 Dose: Not Given Fluticasone Propionate (Flonase) 50 spr ELIAN DAILY PRN PRN Reason: Shortness of Breath Folic Acid (Folic Acid) 1 mg PO DAILY [facility] Last Admin: 11/27/18 10:28 Dose: Not Given Gabapentin (Neurontin) 300 mg PO HS [facility] Last Admin: 11/26/18 21:10 Dose: 300 mg Hydromorphone HCl (Dilaudid) 0.5 mg IVP Q10M PRN PRN Reason: Pain, moderate (4-7) Vancomycin/Sodium Chloride (Vancomycin 1 Gm/Ns 200 Ml) 1 gm in 200 mls @ 133 mls/hr IVPB Q12H [facility]; Protocol Stop: 11/29/18 16:31 Last Admin: 11/27/18 04:32 Dose: 133 mls/hr Ceftriaxone Sodium 1 gm/ (Sodium Chloride) 100 mls @ 100 mls/hr IVPB Q12H [facility]; Protocol Last Admin: 11/26/18 23:01 Dose: 100 mls/hr Sodium Chloride (Sodium Chloride 0.9%) 1,000 mls @ 60 mls/hr IV .[id number] [facility] Last Admin: 11/27/18 02:30 Dose: Not Given Insulin Human Regular (Novolin R) 0 unit SC ACHS [facility]; Protocol Last Admin: 11/27/18 08:09 Dose: Not Given Losartan Potassium (Cozaar) 25 mg PO DAILY [facility] Last Admin: 11/27/18 10:34 Dose: 25 mg Metformin HCl (Glucophage) 1,000 mg PO BID [facility] Last Admin: 11/27/18 10:28 Dose: Not Given Metoprolol Succinate (Toprol Xl) 50 mg PO DAILY [facility] Last Admin: 11/27/18 10:34 Dose: 50 mg Oxycodone/Acetaminophen (Percocet 5/325 Mg Tab) 2 tab PO Q4H PRN PRN Reason: pain Stop: 11/27/18 15:48 Last Admin: 11/26/18 23:00 Dose: 2 tab Pantoprazole Sodium (Protonix Inj) 40 mg IVP DAILY [facility] Last Admin: 11/27/18 10:34 Dose: 40 mg - Labs Labs: 11/27/18 06:58 11/27/18 06:58 PT 11.8 SECONDS (9.7-12.2) 11/24/18 13:49 INR 1.1 11/24/18 13:49 APTT 32 SECONDS (21-34) 11/24/18 13:49 - Constitutional Appears: No Acute Distress - Head Exam Head Exam: NORMAL INSPECTION - Eye Exam Eye Exam: EOMI, PERRL - ENT Exam ENT Exam: Normal Oropharynx - Neck Exam Neck Exam: Normal Inspection - Respiratory Exam Respiratory Exam: Clear to Ausculation Bilateral, NORMAL BREATHING PATTERN - Cardiovascular Exam Cardiovascular Exam: REGULAR RHYTHM, +S1, +S2 - GI/Abdominal Exam GI & Abdominal Exam: Soft, Normal Bowel Sounds - Extremities Exam Extremities Exam: Pedal Edema (LT KNEE/LEG IN DRESSING). absent: Calf Tenderness - Neurological Exam Neurological Exam: Alert, Awake, CN II-XII Intact, Oriented x3 - Psychiatric Exam Psychiatric exam: Normal Mood - Skin Skin Exam: Normal Color, Warm Assessment and Plan (1) Postoperative cellulitis of surgical wound Assessment & Plan: CONTINUE iv VANCOMYCIN 1 G EVERY 12 HOURLY 11/24/18 DC IV ROCEPHIN 1 G EVERY 12 HOURLY 11/24/18. PT IS NEGATIVE FOR MRSA. WHEN CLEARED BY SURGERY, PATIENT CAN BE DISCHARGED ON BY MOUTH AUGMENTIN 875 TWICE A DAY X 10 DAYS. PO FLORSTAR 250MG PO HS DAILY X 10 DAYS lOCAL WOUND CARE PER SURGERY. WILL DISCUSS WITH DR BERMUDEZ. Status: Acute (2) Diabetes mellitus Status: Acute (3) Rheumatoid arthritis Status: Acute
--- NOTE | 2018-11-27 12:23 | CP.PCM.PN ---
<Payam Mendoza - Last Filed: 11/27/18 13:55> Subjective - Date & Time of Evaluation Date of Evaluation: 11/27/18 Time of Evaluation: 12:22 - Subjective Subjective: Medicine Progress Note - Dr Judy Bowers's service Patient seen and examined at bedside. Per nursing no acute events overnight. Patient is doing well, offers no complaints at this time. She is s/p incision and drainage of left thigh abscess. Objective - Vital Signs/Intake and Output Vital Signs (last 24 hours): Temp Pulse Resp BP Pulse Ox 97.9 F 65 20 144/77 96 11/27/18 07:44 11/27/18 07:44 11/27/18 07:44 11/27/18 07:44 11/27/18 07:44 Intake and Output: 11/27/18 11/27/18 06:59 18:59 Intake Total 1760 Balance 1760 - Medications Medications: Current Medications Docusate Sodium (Colace) 100 mg PO BID [facility] Last Admin: 11/27/18 10:27 Dose: Not Given Fluticasone Propionate (Flonase) 50 spr ELIAN DAILY PRN PRN Reason: Shortness of Breath Folic Acid (Folic Acid) 1 mg PO DAILY [facility] Last Admin: 11/27/18 10:28 Dose: Not Given Gabapentin (Neurontin) 300 mg PO HS [facility] Last Admin: 11/26/18 21:10 Dose: 300 mg Hydromorphone HCl (Dilaudid) 0.5 mg IVP Q10M PRN PRN Reason: Pain, moderate (4-7) Vancomycin/Sodium Chloride (Vancomycin 1 Gm/Ns 200 Ml) 1 gm in 200 mls @ 133 mls/hr IVPB Q12H [facility]; Protocol Stop: 11/29/18 16:31 Last Admin: 11/27/18 04:32 Dose: 133 mls/hr Ceftriaxone Sodium 1 gm/ (Sodium Chloride) 100 mls @ 100 mls/hr IVPB Q12H [facility]; Protocol Last Admin: 11/26/18 23:01 Dose: 100 mls/hr Sodium Chloride (Sodium Chloride 0.9%) 1,000 mls @ 60 mls/hr IV .[id number] [facility] Last Admin: 11/27/18 02:30 Dose: Not Given Insulin Human Regular (Novolin R) 0 unit SC [facility]; Protocol Last Admin: 11/27/18 08:09 Dose: Not Given Losartan Potassium (Cozaar) 25 mg PO DAILY [facility] Last Admin: 11/27/18 10:34 Dose: 25 mg Metformin HCl (Glucophage) 1,000 mg PO BID [facility] Last Admin: 11/27/18 10:28 Dose: Not Given Metoprolol Succinate (Toprol Xl) 50 mg PO DAILY [facility] Last Admin: 11/27/18 10:34 Dose: 50 mg Oxycodone/Acetaminophen (Percocet 5/325 Mg Tab) 2 tab PO Q4H PRN PRN Reason: pain Stop: 11/27/18 15:48 Last Admin: 11/26/18 23:00 Dose: 2 tab Pantoprazole Sodium (Protonix Inj) 40 mg IVP DAILY [facility] Last Admin: 11/27/18 10:34 Dose: 40 mg - Labs Labs: 11/27/18 06:58 11/27/18 06:58 PT 11.8 SECONDS (9.7-12.2) 11/24/18 13:49 INR 1.1 11/24/18 13:49 APTT 32 SECONDS (21-34) 11/24/18 13:49 - Head Exam Head Exam: ATRAUMATIC, NORMAL INSPECTION - Eye Exam Eye Exam: EOMI, Normal appearance, PERRL Pupil Exam: NORMAL ACCOMODATION, PERRL. absent: Irregular, Unequal - ENT Exam ENT Exam: Mucous Membranes Moist, Normal Oropharynx - Respiratory Exam Respiratory Exam: Clear to Ausculation Bilateral, NORMAL BREATHING PATTERN. absent: Prolonged Expiratory Phase, Respiratory Distress - Cardiovascular Exam Cardiovascular Exam: REGULAR RHYTHM, +S1, +S2 - GI/Abdominal Exam GI & Abdominal Exam: Soft, Normal Bowel Sounds. absent: Hyperactive Bowel Sounds - Extremities Exam Extremities Exam: Full ROM, Normal Inspection. absent: Pedal Edema - Back Exam Back Exam: NORMAL INSPECTION. absent: CVA tenderness (R), paraspinal tenderness - Neurological Exam Neurological Exam: Alert, Awake, CN II-XII Intact, Oriented x3 - Psychiatric Exam Psychiatric exam: Normal Affect, Normal Mood. absent: Depressed - Skin Skin Exam: Dry, Intact Assessment and Plan - Assessment and Plan (Free Text) Plan: Left lower extremity wound/cellulitis -Stable, afebrile -S/P I+D of left thigh abscess POD#2 -Diet : NPO for OR tomorrow -Wound cultures growing gram positive cocci -Blood cultures negative x 5 days -Antibiotics : Vancomycin 1 gm Q12H and Rocephin 1 gm Q12H -ID on consult, help appreciated CAD s/p stent -On Plavix 75mg PO daily (held) Hypertension -Cozaar 25mg PO daily -Metoprolol succinate 50mg PO daily Diabetes Mellitus -Medium dose Insulin sliding scale and accuchecks ACHS -Metformin 1000mg PO BID -Gabapentin 300mg PO HS -Hemoglobin A1C 10.8 GI/DVT ppx: Protonix 40mg IVP daily Plan discussed with Dr Judy Mendoza, PGY2 <Blessing Bowers S - Last Filed: 11/28/18 17:04> Objective - Vital Signs/Intake and Output Vital Signs (last 24 hours): Temp Pulse Resp BP Pulse Ox 98.6 F 68 20 146/84 98 11/28/18 09:00 11/28/18 09:00 11/28/18 09:00 11/28/18 09:00 11/28/18 09:00 Intake and Output: 11/28/18 11/28/18 06:59 18:59 Intake Total 1770 960 Balance 1770 960 - Labs Labs: 11/28/18 07:26 11/28/18 07:26 PT 11.8 SECONDS (9.7-12.2) 11/24/18 13:49 INR 1.1 11/24/18 13:49 APTT 32 SECONDS (21-34) 11/24/18 13:49 Attending/Attestation - Attestation I have personally seen and examined this patient.: Yes I have fully participated in the care of the patient.: Yes I have reviewed all pertinent clinical information, including history, physical exam and plan: Yes Notes (Text): 11/28/18 17:03 case seen and d.w staff and resident, concurred with finding and management.. Patient had seen by the surgeon status post I and d
[2018-11-27] MEDS ORDERED: Midazolam 2 MG/2 ML VIAL ONE (14:08)
[2018-11-27] MEDS ORDERED: Propofol 10 mg/ml Inj (20 ML) ONE (14:09)
[2018-11-27] MEDS ORDERED: Lidocaine Hydrochloride 5 ML INJ ONE (14:22)
[2018-11-27] MEDS ORDERED: Bupivacaine 0.25% 20 ML INJ IJ ONE (15:00)
[2018-11-27] MEDS ORDERED: Lidocaine Hydrochloride 20 ML INJ ONE (15:00)
[2018-11-27] MEDS ORDERED: Bacitracin 500 Units/gm Oint Foilpak UD ONE (15:19)
[2018-11-27] MEDS ORDERED: HYDROmorphone 0.5 mg/0.5 ml ISec IVP PRN (15:26)
--- NOTE | 2018-11-27 19:34 | CP.PCM.PN ---
Subjective - Date & Time of Evaluation Date of Evaluation: 11/27/18 - Subjective Subjective: patient examined today no nausea no vomiting no diarrhea no SOB no fever Objective - Vital Signs/Intake and Output Vital Signs (last 24 hours): Temp Pulse Resp BP Pulse Ox 97.4 F L 62 13 156/75 H 100 11/27/18 16:30 11/27/18 16:30 11/27/18 16:30 11/27/18 16:30 11/27/18 16:30 Intake and Output: 11/27/18 11/28/18 18:59 06:59 Intake Total 1210 Balance 1210 - Medications Medications: Current Medications Docusate Sodium (Colace) 100 mg PO BID [facility] Last Admin: 11/27/18 17:28 Dose: 100 mg Fluticasone Propionate (Flonase) 50 spr ELIAN DAILY PRN PRN Reason: Shortness of Breath Folic Acid (Folic Acid) 1 mg PO DAILY [facility] Last Admin: 11/27/18 10:28 Dose: Not Given Gabapentin (Neurontin) 300 mg PO HS [facility] Last Admin: 11/26/18 21:10 Dose: 300 mg Hydromorphone HCl (Dilaudid) 0.5 mg IVP Q10M PRN PRN Reason: Pain, moderate (4-7) Vancomycin/Sodium Chloride (Vancomycin 1 Gm/Ns 200 Ml) 1 gm in 200 mls @ 133 ml s/hr IVPB Q12H [facility]; Protocol Stop: 11/29/18 16:31 Last Admin: 11/27/18 18:56 Dose: 133 mls/hr Ceftriaxone Sodium 1 gm/ (Sodium Chloride) 100 mls @ 100 mls/hr IVPB Q12H [facility]; Protocol Last Admin: 11/27/18 12:39 Dose: 100 mls/hr Sodium Chloride (Sodium Chloride 0.9%) 1,000 mls @ 60 mls/hr IV .[id number] [facility] Last Admin: 11/27/18 02:30 Dose: Not Given Insulin Human Regular (Novolin R) 0 unit SC [facility]; Protocol Last Admin: 11/27/18 17:27 Dose: 3 units Losartan Potassium (Cozaar) 25 mg PO DAILY [facility] Last Admin: 11/27/18 10:34 Dose: 25 mg Metformin HCl (Glucophage) 1,000 mg PO BID [facility] Last Admin: 11/27/18 17:28 Dose: 1,000 mg Metoprolol Succinate (Toprol Xl) 50 mg PO DAILY [facility] Last Admin: 11/27/18 10:34 Dose: 50 mg Pantoprazole Sodium (Protonix Inj) 40 mg IVP DAILY [facility] Last Admin: 11/27/18 10:34 Dose: 40 mg - Labs Labs: 11/27/18 06:58 11/27/18 06:58 PT 11.8 SECONDS (9.7-12.2) 11/24/18 13:49 INR 1.1 11/24/18 13:49 APTT 32 SECONDS (21-34) 11/24/18 13:49 - Constitutional Appears: Well - Head Exam Head Exam: ATRAUMATIC, NORMAL INSPECTION, NORMOCEPHALIC - Eye Exam Eye Exam: EOMI, Normal appearance, PERRL Pupil Exam: NORMAL ACCOMODATION, PERRL - ENT Exam ENT Exam: Mucous Membranes Moist, Normal Exam - Neck Exam Neck Exam: Full ROM, Normal Inspection. absent: Lymphadenopathy - Respiratory Exam Respiratory Exam: Decreased Breath Sounds - Cardiovascular Exam Cardiovascular Exam: REGULAR RHYTHM, +S1, +S2 - GI/Abdominal Exam GI & Abdominal Exam: Soft, Diminished Bowel Sounds - Rectal Exam Rectal Exam: Deferred Assessment and Plan - Assessment and Plan (Free Text) Plan: patient evaluated today medications reviewed labs reviewed vitals reviewed ceftriaxone sodium 1gm colace cozaar dilaudid flonase folic acid glucophage neurontin novolin r protonix inj sodium chloride 0.9% toprol xl vancomycin 1gm/ns 200 mlPlan: Left lower extremity wound/cellulitis -Stable, afebrile -S/P I+D of left thigh abscess POD#2 -Diet : NPO for OR tomorrow -Wound cultures growing gram positive cocci -Blood cultures negative x 5 days -Antibiotics : Vancomycin 1 gm Q12H and Rocephin 1 gm Q12H -ID on consult, help appreciated CAD s/p stent -On Plavix 75mg PO daily (held) Hypertension -Cozaar 25mg PO daily -Metoprolol succinate 50mg PO daily Diabetes Mellitus -Medium dose Insulin sliding scale and accuchecks ACHS -Metformin 1000mg PO BID -Gabapentin 300mg PO HS -Hemoglobin A1C 10.8 GI/DVT ppx: Protonix 40mg IVP daily
[2018-11-28 00:50] VITALS: RESP 20
--- NOTE | 2018-11-28 02:11 | OP ---
PROCEDURE DATE: 11/27/2018 PREOPERATIVE DIAGNOSIS: Open infected wounds of right thigh and knee. POSTOPERATIVE DIAGNOSIS: Open infected wounds of right thigh and knee. PROCEDURE PERFORMED: Debridement, re-drainage of collections, advancement flap secondary closure of right knee and thigh wounds. SURGEON: Willis Nevarez MD ANESTHESIA: IV sedation with local. ESTIMATED BLOOD LOSS: 20 mL. POSTOPERATIVE CONDITION: Stable. DESCRIPTION OF PROCEDURE: This is a staged procedure. The patient was taken back to the OR for debridement and closure of her wounds as they have healed adequately, granulated. The patient does not have methicillin-resistant Staph infection, but rather Enterococcus faecalis infection as per culture and sensitivities. IV sedation was administered. The left knee, thigh and leg were prepped and draped. Both wounds were again aggressively debrided. Bleeding was controlled using a Bovie, and larger blood vessel was repaired. Generous tissue flaps were raised. Counter incisions were made. A tissue flap closure was performed in both wounds using heavy Monocryl clips. This was done after vigorous pulse irrigation of both wounds. The patient tolerated the procedure well and returned to recovery room in stable condition. Willis Nevarez MD [facility]
[2018-11-28] MEDS: Vancomycin 1 gm/NS 200 ml 1 GM/200 ML BAG IVPB SCH (03:30)
[2018-11-28 07:50] LABS: BASO % 0.6 % (0.0-2.0); EOS # 0.2 K/uL (0.0-0.7); EOS % 3.1 % (0.0-4.0); HEMOGLOBIN 12.1 g/dL (11.0-16.0); LYMPH # 1.9 K/uL (1.0-4.3); LYMPH % 24.9 % (20.0-40.0); MEAN CELL VOLUME 88.3 fL (81.0-99.0); MEAN CORPUSCULAR HEMOGLOBIN 29.4 pg (27.0-31.0); MEAN CORPUSCULAR HGB CONC 33.3 g/dL (33.0-37.0); MONO # 0.6 K/uL (0.0-0.8); MONO % 8.1 % (0.0-10.0); NEUT # 4.9 K/uL (1.8-7.0); NEUT % 63.3 % (50.0-75.0); RBC 4.12 Mil/uL (3.80-5.20); RED CELL DISTRIBUTION WIDTH 14.5 % (11.5-14.5); WHITE BLOOD COUNT 7.8 K/uL (4.8-10.8)
[2018-11-28 08:05] LABS: ALB/GLOB RATIO 1.4 (1.0-2.1); ALBUMIN 3.9 g/dL (3.5-5.0); ALT/SGPT 26 U/L (9-52); AST/SGOT 30 U/L (14-36); BLOOD UREA NITROGEN 12 mg/dL (7-17); GFR NON-AFRICAN AMERICAN > 60
[2018-11-28] MEDS: (Novolin R) Insulin Human Regular 100 units/ml vial SC SCH ×2 (08:30→12:11)
[2018-11-28 09:01] VITALS: BP 146/84; PULSE 68; TEMP 98.6
[2018-11-28] MEDS: Metoprolol Succinate 50 mg XL Tab PO SCH (10:20)
--- NOTE | 2018-11-28 10:21 | CP.PCM.PN ---
Subjective - Date & Time of Evaluation Date of Evaluation: 11/28/18 - Subjective Subjective: Patient was examined today at bedside patient denies nausea, vomiting, fever, diarrhea, dizziness, shortness of breath Objective - Vital Signs/Intake and Output Vital Signs (last 24 hours): Temp Pulse Resp BP Pulse Ox 98.6 F 68 20 146/84 98 11/28/18 09:00 11/28/18 09:00 11/28/18 09:00 11/28/18 09:00 11/28/18 09:00 Intake and Output: 11/28/18 11/28/18 06:59 18:59 Intake Total 1770 Balance 1770 - Medications Medications: Current Medications Docusate Sodium (Colace) 100 mg PO BID [facility] Last Admin: 11/28/18 10:20 Dose: 100 mg Fluticasone Propionate (Flonase) 50 spr ELIAN DAILY PRN PRN Reason: Shortness of Breath Folic Acid (Folic Acid) 1 mg PO DAILY [facility] Last Admin: 11/28/18 10:20 Dose: 1 mg Gabapentin (Neurontin) 300 mg PO HS [facility] Last Admin: 11/27/18 21:37 Dose: 300 mg Hydromorphone HCl (Dilaudid) 0.5 mg IVP Q10M PRN PRN Reason: Pain, moderate (4-7) Vancomycin/Sodium Chloride (Vancomycin 1 Gm/Ns 200 Ml) 1 gm in 200 mls @ 133 mls/hr IVPB Q12H [facility]; Protocol Stop: 11/29/18 16:31 Last Admin: 11/28/18 03:30 Dose: 133 mls/hr Sodium Chloride (Sodium Chloride 0.9%) 1,000 mls @ 60 mls/hr IV .[id number] [facility] Last Admin: 11/27/18 19:10 Dose: Not Given Insulin Human Regular (Novolin R) 0 unit SC ACHS [facility]; Protocol Last Admin: 11/28/18 08:30 Dose: 3 units Losartan Potassium (Cozaar) 25 mg PO DAILY [facility] Last Admin: 11/28/18 10:20 Dose: 25 mg Metformin HCl (Glucophage) 1,000 mg PO BID [facility] Last Admin: 11/28/18 10:20 Dose: 1,000 mg Metoprolol Succinate (Toprol Xl) 50 mg PO DAILY [facility] Last Admin: 03/30/19 10:20 Dose: 50 mg Pantoprazole Sodium (Protonix Inj) 40 mg IVP DAILY [facility] Last Admin: 11/28/18 10:20 Dose: 40 mg - Labs Labs: 11/28/18 07:26 11/28/18 07:26 PT 11.8 SECONDS (9.7-12.2) 11/24/18 13:49 INR 1.1 11/24/18 13:49 APTT 32 SECONDS (21-34) 11/24/18 13:49 - Constitutional Appears: Well - Head Exam Head Exam: ATRAUMATIC, NORMAL INSPECTION, NORMOCEPHALIC - Eye Exam Eye Exam: EOMI, Normal appearance, PERRL Pupil Exam: NORMAL ACCOMODATION, PERRL - ENT Exam ENT Exam: Mucous Membranes Moist, Normal Exam - Neck Exam Neck Exam: Full ROM, Normal Inspection. absent: Lymphadenopathy - Respiratory Exam Respiratory Exam: Decreased Breath Sounds - Cardiovascular Exam Cardiovascular Exam: REGULAR RHYTHM, +S1, +S2 - GI/Abdominal Exam GI & Abdominal Exam: Soft, Diminished Bowel Sounds - Rectal Exam Rectal Exam: Deferred
[2018-11-28] MEDS ORDERED: Influenza Vaccine 60 mcg/0.5 mL SYR (4YR UP) IM ONE (11:23)
[2018-11-28] MEDS ORDERED: Pneumococcal 23-Valent Vaccine IM ONE (11:23)
[2018-11-28] MEDS: Sodium Chloride 0.9% 1,000 ML IV SCH (12:12)
[2018-12-03 14:54] VITALS: O2SAT 97
== END 2018-11-28 12:05 | disposition home or self-care (01) | DRG 857 ==
LOC: C.ER 11:51 → C.SDS 14:41 → C.9E 15:48 → C.3T 16:40
PROVIDERS: ADMIT Surgery; ATTEND Surgery
PROC: 0J9P0ZZ Drainage of Left Lower Leg Subcutaneous Tissue and Fascia, Open Approach (ICD-10-PCS; 2018-11-24)
PROC: 0JBM0ZZ Excision of Left Upper Leg Subcutaneous Tissue and Fascia, Open Approach (ICD-10-PCS; 2018-11-24)
PROC: 0HXJXZZ Transfer Left Upper Leg Skin, External Approach (ICD-10-PCS; 2018-11-24)
PROC: 0JBP0ZZ Excision of Left Lower Leg Subcutaneous Tissue and Fascia, Open Approach (ICD-10-PCS; principal; 2018-11-24 14:00)
PROC: 0J9P0ZZ Drainage of Left Lower Leg Subcutaneous Tissue and Fascia, Open Approach (ICD-10-PCS; 2018-11-25)
PROC: 0J9M0ZZ Drainage of Left Upper Leg Subcutaneous Tissue and Fascia, Open Approach (ICD-10-PCS; 2018-11-25)
PROC: 0JBP0ZZ Excision of Left Lower Leg Subcutaneous Tissue and Fascia, Open Approach (ICD-10-PCS; 2018-11-25)
PROC: 0JBM0ZZ Excision of Left Upper Leg Subcutaneous Tissue and Fascia, Open Approach (ICD-10-PCS; 2018-11-25)
PROC: 0J9P0ZZ Drainage of Left Lower Leg Subcutaneous Tissue and Fascia, Open Approach (ICD-10-PCS; 2018-11-26)
PROC: 0JX Subcutaneous Tissue and Fascia, Transfer (ICD-10-PCS; 2018-11-26)
PROC: 0JBP0ZZ Excision of Left Lower Leg Subcutaneous Tissue and Fascia, Open Approach (ICD-10-PCS; 2018-11-26)
PROC: 0JXM0ZZ Transfer Left Upper Leg Subcutaneous Tissue and Fascia, Open Approach (ICD-10-PCS; 2018-11-26)
PROC: 0JBM0ZZ Excision of Left Upper Leg Subcutaneous Tissue and Fascia, Open Approach (ICD-10-PCS; 2018-11-26)
PROC: 0J9M0ZZ Drainage of Left Upper Leg Subcutaneous Tissue and Fascia, Open Approach (ICD-10-PCS; 2018-11-26)
PROC: 0J9M0ZZ Drainage of Left Upper Leg Subcutaneous Tissue and Fascia, Open Approach (ICD-10-PCS; 2018-11-27)
PROC: 0JBP0ZZ Excision of Left Lower Leg Subcutaneous Tissue and Fascia, Open Approach (ICD-10-PCS; 2018-11-27)
PROC: 0JBM0ZZ Excision of Left Upper Leg Subcutaneous Tissue and Fascia, Open Approach (ICD-10-PCS; 2018-11-27)
PROC: 0HQLXZZ Repair Left Lower Leg Skin, External Approach (ICD-10-PCS; 2018-11-27)
PROC: 0HQJXZZ Repair Left Upper Leg Skin, External Approach (ICD-10-PCS; 2018-11-27)
DX: T81.49XA Infection following a procedure, other surgical site, initial encounter (principal); L02.416 Cutaneous abscess of left lower limb; T81.31XA Disruption of external operation (surgical) wound, not elsewhere classified, initial encounter; L03.116 Cellulitis of left lower limb; E11.52 Type 2 diabetes mellitus with diabetic peripheral angiopathy with gangrene; M31.9 Necrotizing vasculopathy, unspecified; B95.2 Enterococcus as the cause of diseases classified elsewhere; M06.9 Rheumatoid arthritis, unspecified; I10 Essential (primary) hypertension; I25.10 Atherosclerotic heart disease of native coronary artery without angina pectoris; E78.5 Hyperlipidemia, unspecified; E78.00 Pure hypercholesterolemia, unspecified; H40.9 Unspecified glaucoma; Z95.5 Presence of coronary angioplasty implant and graft; Z79.84 Long term (current) use of oral hypoglycemic drugs; Z90.710 Acquired absence of both cervix and uterus

== ENCOUNTER 2018-12-11 11:36 | Emergency (ER) | payer MEDICARE, MEDICAID ==
[2018-12-11 11:45] VITALS: BMI 28.3
[2018-12-11 11:49] VITALS: RESP 16
[2018-12-11] MEDS ORDERED: Lidocaine 5% Patch TD STA (13:56)
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
[2018-12-11] MEDS ORDERED: Lidocaine 5% Patch TD ONE (14:35)
--- NOTE | 2018-12-11 15:14 | RAD ---
Date of service: 12/11/2018 PROCEDURE: CHEST RADIOGRAPH, 1 VIEW HISTORY: chest pain COMPARISON: 11/24/2018. FINDINGS: LUNGS: The lungs are well inflated and clear. There is linear atelectasis in the peripheral left lower lobe. PLEURA: No pneumothorax or pleural effusion. CARDIOVASCULAR: The heart is normal in size. No aortic atherosclerotic calcifications present. OSSEOUS STRUCTURES: Within normal limits for the patient's age. VISUALIZED UPPER ABDOMEN: Normal. OTHER FINDINGS: None. IMPRESSION: No active pulmonary disease.
--- NOTE | 2018-12-11 15:22 | RAD ---
Date of service: 12/11/2018 PROCEDURE: Radiographs of the left shoulder HISTORY: pain COMPARISON: No prior. FINDINGS: BONES: Bone alignment and mineralization are normal. There is no acute displaced fracture or bone destruction. A small sclerotic focus in the greater tuberosity of the humerus is statistically most compatible with a bone island JOINTS: The glenohumeral and acromioclavicular joints are preserved. No significant degenerative osteoarthrosis. SOFT TISSUES: Normal. OTHER FINDINGS: None. IMPRESSION: No acute displaced fracture or dislocation
[2018-12-11 15:56] LABS: BASO # 0.1 K/uL (0.0-0.2); BASO % 0.6 % (0.0-2.0); EOS # 0.2 K/uL (0.0-0.7); HEMOGLOBIN 11.8 g/dL (11.0-16.0); LYMPH # 2.3 K/uL (1.0-4.3); MEAN CELL VOLUME 87.3 fL (81.0-99.0); MEAN CORPUSCULAR HEMOGLOBIN 29.4 pg (27.0-31.0); MEAN CORPUSCULAR HGB CONC 33.7 g/dL (33.0-37.0); MEAN PLATELET VOLUME 7.9 fL (7.2-11.7); MONO # 1.1 K/uL (0.0-0.8); MONO % 7.5 % (0.0-10.0); NEUT # 10.8 K/uL (1.8-7.0); NEUT % 74.9 % (50.0-75.0); RBC 4.02 Mil/uL (3.80-5.20); RED CELL DISTRIBUTION WIDTH 14.2 % (11.5-14.5)
[2018-12-11 16:02] LABS: WHITE BLOOD COUNT 14.4 K/uL (4.8-10.8)
[2018-12-11 16:18] LABS: ALB/GLOB RATIO 1.4 (1.0-2.1); ALBUMIN 4.6 g/dL (3.5-5.0); ALT/SGPT 21 U/L (9-52); AST/SGOT 30 U/L (14-36); BLOOD UREA NITROGEN 14 mg/dL (7-17); CALCIUM 9.6 mg/dl (8.6-10.4); GFR NON-AFRICAN AMERICAN > 60
[2018-12-11 17:28] VITALS: BP 117/69; PULSE 72; TEMP 98.6
[2018-12-11 17:48] VITALS: O2SAT 99
--- NOTE | 2018-12-15 15:26 | CARD ---
APPROVED REPORT Date of service: 12/11/2018 EKG Measurement Heart [id number] <Conclusion> Sinus rhythm with 1st degree AV block Low voltage QRS Borderline ECG
== END 2018-12-11 18:19 | disposition home or self-care (01) ==
LOC: C.ER 11:36
DX: M06.9 Rheumatoid arthritis, unspecified (principal); M25.512 Pain in left shoulder